=== PATIENT | female | born 1960 | race Caucasian/White ===

== ENCOUNTER 2021-06-08 19:20 | Emergency (ER) | payer BC, OTHER ==
[2021-06-08 19:32] VITALS: RESP 18
[2021-06-08] MEDS ORDERED: ONDANSETRON 4 MG/2 ML VIAL IVP STA (19:47)
[2021-06-08] MEDS ORDERED: FAMOTIDINE 20 MG/2 ML VIAL IV STA (19:47)
[2021-06-08] MEDS ORDERED: SODIUM CHLORIDE 0.9% 1,000 ML IV STA (19:47)
--- NOTE | 2021-06-08 19:49 | ED ---
General Adult HPI - General Chief complaint: Fever Stated complaint: Fever Time Seen by Provider: 06/08/21 19:22 Source: patient, EMS, RN notes reviewed Mode of arrival: EMS Limitations: no limitations - History of Present Illness Initial comments: Patient is a pleasant 61-year-old female presenting to the emergency department with fever. Onset of symptoms was 4 days ago. Patient has been chilled and has myalgias. Patient has had significant fatigue. Patient has an odd smell when she tried to small. Patient has loss of appetite and nausea. No vomiting. Patient has epigastric discomfort similar to her previous reflux. Patient denies having chest discomfort. No dyspnea. No back pain. - Related Data Previous Rx's Medication Instructions Recorded Famotidine [Pepcid] 20 mg PO DAILY #14 tablet 06/16/15 Lidocaine Viscous [Xylocaine 5 ml PO Q3H PRN #100 ml 06/16/15 Viscous 2%] Allergies Allergy/AdvReac Type Severity Reaction Status Date / Time No Known Allergies Allergy Verified 06/16/15 19:38 Review of Systems ROS Statement: Those systems with pertinent positive or pertinent negative responses have been documented in the HPI. ROS Other: All systems not noted in ROS Statement are negative. Constitutional: Reports: fever, chills Eyes: Denies: eye pain ENT: Denies: ear pain Respiratory: Denies: dyspnea Cardiovascular: Denies: chest pain Endocrine: Reports: fatigue Gastrointestinal: Reports: abdominal pain, nausea. Denies: vomiting Genitourinary: Denies: dysuria Musculoskeletal: Denies: back pain Skin: Denies: rash Neurological: Denies: weakness Past Medical History Past Medical History: GERD/Reflux History of Any Multi-Drug Resistant Organisms: None Reported Past Surgical History: No Surgical Hx Reported Past Psychological History: No Psychological Hx Reported Smoking Status: Never smoker Past Alcohol Use History: None Reported Past Drug Use History: None Reported General Exam Limitations: no limitations General appearance: alert, in no apparent distress Head exam: Present: normocephalic Eye exam: Present: normal appearance ENT exam: Present: normal oropharynx Neck exam: Present: normal inspection Respiratory exam: Present: normal lung sounds bilaterally Cardiovascular Exam: Present: regular rate, normal rhythm Expanded Peripheral pulses: 2+: Radial (R), Radial (L), Posterior Tibialis (R), Posterior Tibialis (L) GI/Abdominal exam: Present: soft, tenderness (Mild epigastric tenderness to palpation). Absent: distended Extremities exam: Present: normal inspection. Absent: pedal edema, calf t enderness Neurological exam: Present: alert Psychiatric exam: Present: normal affect, normal mood Skin exam: Present: normal color Course Vital Signs 06/08/21 06/08/21 06/08/21 19:22 20:10 21:35 Temperature 98.7 F Pulse Rate 81 76 82 Respiratory 18 18 18 Rate Blood Pressure 133/81 135/67 124/89 O2 Sat by Pulse 94 L 92 L 93 L Oximetry - Reevaluation(s) Reevaluation #1: 06/08/21 19:59 Patient states drain tube has been draining and was empty just prior to arrival. There is a proximal he 5-10 mL of serosanguineous fluid present. EKG Findings - EKG Comments: EKG Findings:: Normal sinus rhythm with rate of 78. ND 132. QRS 88. QT 380. QTC 433. Normal axis. Normal QRS. No acute ST change. Medical Decision Making - Medical Decision Making Patient reevaluated and resting comfortably in bed. Patient and family updated on results - Lab Data Result diagrams: 06/08/21 19:48 06/08/21 19:48 Lab Results 06/08/21 06/08/21 06/08/21 Range/Units 19:48 19:48 19:48 WBC 4.3 (3.8-10.6) k/uL RBC 4.43 (3.80-5.40) m/uL Hgb 13.3 (11.4-16.0) gm/dL Hct 40.3 (34.0-46.0) % MCV 90.8 (80.0-100.0) fL MCH 29.9 (25.0-35.0) pg MCHC 32.9 (31.0-37.0) g/dL RDW 12.8 (11.5-15.5) % Plt Count 133 L (150-450) k/uL MPV 10.4 Neutrophils % 76 % Lymphocytes % 14 % Monocytes % 7 % Eosinophils % 0 % Basophils % 0 % Neutrophils # 3.3 (1.3-7.7) k/uL Lymphocytes # 0.6 L (1.0-4.8) k/uL Monocytes # 0.3 (0-1.0) k/uL Eosinophils # 0.0 (0-0.7) k/uL Basophils # 0.0 (0-0.2) k/uL PT 10.5 (9.0-12.0) sec INR 1.0 (<1.2) APTT 22.5 (22.0-30.0) sec Sodium (137-145) mmol/L Potassium (3.5-5.1) mmol/L Chloride (98-107) mmol/L Carbon Dioxide (22-30) mmol/L Anion Gap mmol/L BUN (7-17) mg/dL Creatinine (0.52-1.04) mg/dL Est GFR (CKD-EPI)AfAm (>60 ml/min/1.73 sqM) Est GFR (CKD-EPI)NonAf (>60 ml/min/1.73 sqM) Glucose (74-99) mg/dL Calcium (8.4-10.2) mg/dL Total Bilirubin (0.2-1.3) mg/dL AST (14-36) U/L ALT (4-34) U/L Alkaline Phosphatase (38-126) U/L Troponin I (0.000-0.034) ng/mL Total Protein (6.3-8.2) g/dL Albumin (3.5-5.0) g/dL Amylase (30-110) U/L Lipase (23-300) U/L Coronavirus (PCR) Detected A (Not Detectd) 06/08/21 06/08/21 Range/Units 19:48 19:48 WBC (3.8-10.6) k/uL RBC (3.80-5.40) m/uL Hgb (11.4-16.0) gm/dL Hct (34.0-46.0) % MCV (80.0-100.0) fL MCH (25.0-35.0) pg MCHC (31.0-37.0) g/dL RDW (11.5-15.5) % Plt Count (150-450) k/uL MPV Neutrophils % % Lymphocytes % % Monocytes % % Eosinophils % % Basophils % % Neutrophils # (1.3-7.7) k/uL Lymphocytes # (1.0-4.8) k/uL Monocytes # (0-1.0) k/uL Eosinophils # (0-0.7) k/uL Basophils # (0-0.2) k/uL PT (9.0-12.0) sec INR (<1.2) APTT (22.0-30.0) sec Sodium 138 (137-145) mmol/L Potassium 3.9 (3.5-5.1) mmol/L Chloride 110 H (98-107) mmol/L Carbon Dioxide 18 L (22-30) mmol/L Anion Gap 10 mmol/L BUN 18 H (7-17) mg/dL Creatinine 0.73 (0.52-1.04) mg/dL Est GFR (CKD-EPI)AfAm >90 (>60 ml/min/1.73 sqM) Est GFR (CKD-EPI)NonAf 88 (>60 ml/min/1.73 sqM) Glucose 111 H (74-99) mg/dL Calcium 7.9 L (8.4-10.2) mg/dL Total Bilirubin 0.6 (0.2-1.3) mg/dL AST 30 (14-36) U/L ALT 34 (4-34) U/L Alkaline Phosphatase 59 (38-126) U/L Troponin I <0.012 (0.000-0.034) ng/mL Total Protein 6.5 (6.3-8.2) g/dL Albumin 3.3 L (3.5-5.0) g/dL Amylase 59 (30-110) U/L Lipase 247 (23-300) U/L Coronavirus (PCR) (Not Detectd) - Radiology Data Radiology results: report reviewed (Computed tomography scan of abdomen and pelvis shows some mild subpleural interstitial infiltrates, negative computed t omography scan of abdomen and pelvis.), image reviewed (Chest x-ray shows mild peripheral pulmonary interstitial infiltrates.) Disposition Clinical Impression: COVID-19 Disposition: ADMITTED IP TO THIS [facility] Condition: Stable Instructions (If sedation given, give patient instructions): Coronavirus Disease 2019 (COVID-19) Additional Instructions: Please do follow-up with primary care physician in the next day or 2 for recheck. [id number] Pepcid if needed for reflux. [id number] vitamin C, vitamin D, and zinc. Tylenol as needed for fever or chills or muscle aches. Is patient prescribed a controlled substance at d/c from ED?: No Referrals: Rahul Narayanan MD [Primary Care Provider] - 1-2 days Time of Disposition: 21:38
[2021-06-08 20:08] LABS: Basophils % (A) 0 %; Eosinophils % (A) 0 %; HCT 40.3 % (34.0-46.0); HGB 13.3 gm/dL (11.4-16.0); Lymphocytes # (A) 0.6 k/uL (1.0-4.8); Lymphocytes % (A) 14 %; MCH 29.9 pg (25.0-35.0); MCHC 32.9 g/dL (31.0-37.0); MCV 90.8 fL (80.0-100.0); Mean Platelet Volume 10.4; Monocytes # (A) 0.3 k/uL (0-1.0); Monocytes % (A) 7 %; Neutrophils # (A) 3.3 k/uL (1.3-7.7); Neutrophils % (A) 76 %; Platelet Count 133 k/uL (150-450); RBC 4.43 m/uL (3.80-5.40); RDW 12.8 % (11.5-15.5); WBC 4.3 k/uL (3.8-10.6)
--- NOTE | 2021-06-08 20:08 | XR ---
EXAMINATION TYPE: XR chest 2V DATE OF EXAM: 06/08/2021 COMPARISON: 06/16/2015 HISTORY: Weakness TECHNIQUE: 2 views FINDINGS: Heart is normal. Lungs are clear of consolidation. There are no hilar masses. Costophrenic angles are clear. There is some mild peripheral interstitial density in the lateral right lower lobe and lateral left upper lobe. Bony thorax is intact. IMPRESSION: Mild peripheral pulmonary interstitial infiltrates appear new compared to old exam. Milena l heart.
[2021-06-08 20:18] LABS: ALT 34 U/L (4-34); AST 30 U/L (14-36); African American GFR (CKD) >90 (>60 ml/min/1.73 sqM); Albumin 3.3 g/dL (3.5-5.0); Alkaline Phosphatase 59 U/L (38-126); Amylase 59 U/L (30-110); Anion Gap 10 mmol/L; Blood Urea Nitrogen 18 mg/dL (7-17); Calcium 7.9 mg/dL (8.4-10.2); Carbon Dioxide 18 mmol/L (22-30); Chloride 110 mmol/L (98-107); Glucose 111 mg/dL (74-99); Lipase 247 U/L (23-300); Non-African American GFR(CKD) 88 (>60 ml/min/1.73 sqM); Potassium 3.9 mmol/L (3.5-5.1); Sodium 138 mmol/L (137-145); Total Bilirubin 0.6 mg/dL (0.2-1.3); Total Protein 6.5 g/dL (6.3-8.2)
[2021-06-08 20:37] LABS: Partial Thromboplastin Time 22.5 sec (22.0-30.0); Prothrombin Time 10.5 sec (9.0-12.0)
--- NOTE | 2021-06-08 21:19 | CT ---
EXAMINATION TYPE: CT abdomen pelvis w con DATE OF EXAM: 06/08/2021 COMPARISON: None HISTORY: epigastric pain CT DLP: 718.5 mGycm Automated exposure control for dose reduction was used. CONTRAST: Performed with IV Contrast, patient injected with 100 mL of Isovue 300. Images obtained from the diaphragm to the floor of the pelvis with IV contrast. There is some mild patchy subpleural infiltrate in the posterior lung jackson. Heart size is normal. There is no pericardial effusion. There is no pleural effusion. The liver is in tact. The bile duct is not dilated. Gallbladder appears normal. Spleen is intact. There are multiple splenic calcified granulomata. There is no evidence of pancreatic mass. There is no adrenal mass. Kidneys show satisfactory contrast opacification. There is no hydronephrosi s. Ureters are not dilated. There is no retroperitoneal adenopathy. Bladder distends smoothly. There is no inguinal hernia. There is no free fluid in the pelvis. Uterus is anteverted. There is no mesenteric edema. There is no ascites or free air. There is no bowel obstruction. Appendi x not clearly seen. No sign of thickened appendix. The lumbar vertebra have normal alignment. Posterior elements are intact. There is no compression fra cture. The bony pelvis is intact. The hip joints are intact. Sacroiliac joints are intact. IMPRESSION: Negative CT scan of the abdomen and pelvis. There is some mild subpleural interstitial infiltrative a telectasis in the posterior lung jackson.
[2021-06-08 21:37] VITALS: BP 124/89
[2021-06-08 21:59] VITALS: PULSE 78; TEMP 98.3
== END 2021-06-08 22:10 | disposition other institution (70) ==
LOC: EC 19:20
DX: U07.1 COVID-19 (principal); K21.9 Gastro-esophageal reflux disease without esophagitis; Z79.899 Other long term (current) drug therapy
CPT/HCPCS: 36415; 93005; 80053; 82150; 83690; 84484; 85025; 85610; 85730; 87635; 71046; 74177; 99285; 96374; 96375; J2405; Q9967

== ENCOUNTER 2021-06-18 00:39 | Inpatient (IN) | payer BC, OTHER ==
[2021-06-18] MEDS ORDERED: ONDANSETRON 4 MG/2 ML VIAL IVP STA (00:51)
[2021-06-18] MEDS ORDERED: MORPHINE SULFATE 4 MG/ML SYRINGE IVP STA (00:51)
--- NOTE | 2021-06-18 00:57 | ED ---
General Adult HPI - General Stated complaint: Shortness of Breath, Chest Pain Time Seen by Provider: 06/18/21 00:41 - History of Present Illness Initial comments: 61 year-old female patient presents for evaluation of left upper chest pain with radiation into her ribs and left posterior shoulder. States pain started on Friday and has been worsening. States she is unable to lie down or take deep breaths. States she was diagnosed with COVID 10 days ago. States she was seen at [place] [facility] on Friday and urgent care today. States she is not feeling any b lauren. She denies cough. Denies nausea or vomiting. Denies any fever or chills. Patient denies any recent rash, abdominal pain, diarrhea, constipation, back pain, numbness, tingling, dizziness, weakness, hematuria, dysuria, urinary urgency, urinary frequency, headache, visual changes, or any other complaints. - Related Data Previous Rx's Medication Instructions Recorded Famotidine [Pepcid] 20 mg PO DAILY #14 tablet 06/16/15 Lidocaine Viscous [Xylocaine 5 ml PO Q3H PRN #100 ml 06/16/15 Viscous 2%] Allergies Allergy/AdvReac Type Severity Reaction Status Date / Time No Known Allergies Allergy Verified 06/16/15 19:38 Review of Systems ROS Statement: Those systems with pertinent positive or pertinent negative responses have been documented in the HPI. ROS Other: All systems not noted in ROS Statement are negative. Past Medical History Past Medical History: GERD/Reflux History of Any Multi-Drug Resistant Organisms: None Reported Past Surgical History: No Surgical Hx Reported Past Psychological History: No Psychological Hx Reported Smoking Status: Never smoker Past Alcohol Use History: None Reported Past Drug Use History: None Reported General Exam General appearance: alert, in no apparent distress, other (This is a well- developed, well-nourished adult female in mild distress related to pain.) ENT exam: Present: normal exam, normal oropharynx, mucous membranes moist Respiratory exam: Present: normal lung sounds bilaterally. Absent: respiratory distress, wheezes, rales, rhonchi, stridor Cardiovascular Exam: Present: regular rate, normal rhythm, normal heart sounds. Absent: systolic murmur, diastolic murmur, rubs, gallop, clicks GI/Abdominal exam: Present: soft, normal bowel sounds. Absent: distended, tenderness, guarding, rebound, rigid Neurological exam: Present: alert, oriented X3, CN II-XII intact Psychiatric exam: Present: normal affect, normal mood Skin exam: Present: warm, dry, intact, normal color. Absent: rash Course Vital Signs 06/18/21 00:50 Temperature 99.1 F Pulse Rate 105 H Respiratory 19 Rate Blood Pressure 110/95 O2 Sat by Pulse 94 L Oximetry Medical Decision Making - Medical Decision Making 61-year-old female patient presented to the emergency department today for evaluation of increased shortness of breath, left-sided chest pain with radiation to the left posterior shoulder. Oxygen saturation on room air was 91- 93%. Lungs are clear to auscultation. Labs reviewed and did reveal white blood cell count of 14.5. D-dimer 4.89. Troponin negative. EKG did show sinus tachycardia. CT chest angiography for pulmonary embolus was obtained and did show multiple bilateral pulmonary emboli. We will start heparin. Consults to pulmonology and vascular. My attending is Dr. Michelle. - Lab Data Result diagrams: 06/18/21 01:43 06/18/21 01:43 Lab Results 06/18/21 06/18/21 06/18/21 Range/Units 01:43 01:43 01:43 WBC 14.5 H (3.8-10.6) k/uL RBC 4.63 (3.80-5.40) m/uL Hgb 13.7 (11.4-16.0) gm/dL Hct 41.3 (34.0-46.0) % MCV 89.3 (80.0-100.0) fL MCH 29.6 (25.0-35.0) pg MCHC 33.1 (31.0-37.0) g/dL RDW 12.3 (11.5-15.5) % Plt Count 414 D (150-450) k/uL MPV 7.8 Neutrophils % 86 % Lymphocytes % 6 % Monocytes % 6 % Eosinophils % 1 % Basophils % 0 % Neutrophils # 12.5 H (1.3-7.7) k/uL Lymphocytes # 0.8 L (1.0-4.8) k/uL Monocytes # 0.8 (0-1.0) k/uL Eosinophils # 0.1 (0-0.7) k/uL Basophils # 0.0 (0-0.2) k/uL PT 11.6 (9.0-12.0) sec INR 1.1 (<1.2) APTT 28.9 (22.0-30.0) sec D-Dimer 4.89 H (<0.60) mg/L FEU Sodium 137 (137-145) mmol/L Potassium 4.4 (3.5-5.1) mmol/L Chloride 106 (98-107) mmol/L Carbon Dioxide 21 L (22-30) mmol/L Anion Gap 10 mmol/L BUN 13 (7-17) mg/dL Creatinine 0.65 (0.52-1.04) mg/dL Est GFR (CKD-EPI)AfAm >90 (>60 ml/min/1.73 sqM) Est GFR (CKD-EPI)NonAf >90 (>60 ml/min/1.73 sqM) Glucose 120 H (74-99) mg/dL Calcium 9.0 (8.4-10.2) mg/dL Magnesium 2.3 (1.6-2.3) mg/dL Total Bilirubin 0.9 (0.2-1.3) mg/dL AST 31 (14-36) U/L ALT 28 (4-34) U/L Alkaline Phosphatase 100 (38-126) U/L Troponin I (0.000-0.034) ng/mL Total Protein 7.9 (6.3-8.2) g/dL Albumin 3.6 (3.5-5.0) g/dL 06/18/21 Range/Units 01:43 WBC (3.8-10.6) k/uL RBC (3.80-5.40) m/uL Hgb (11.4-16.0) gm/dL Hct (34.0-46.0) % MCV (80.0-100.0) fL MCH (25.0-35.0) pg MCHC (31.0-37.0) g/dL RDW (11.5-15.5) % Plt Count (150-450) k/uL MPV Neutrophils % % Lymphocytes % % Monocytes % % Eosinophils % % Basophils % % Neutrophils # (1.3-7.7) k/uL Lymphocytes # (1.0-4.8) k/uL Monocytes # (0-1.0) k/uL Eosinophils # (0-0.7) k/uL Basophils # (0-0.2) k/uL PT (9.0-12.0) sec INR (<1.2) APTT (22.0-30.0) sec D-Dimer (<0.60) mg/L FEU Sodium (137-145) mmol/L Potassium (3.5-5.1) mmol/L Chloride (98-107) mmol/L Carbon Dioxide (22-30) mmol/L Anion Gap mmol/L BUN (7-17) mg/dL Creatinine (0.52-1.04) mg/dL Est GFR (CKD-EPI)AfAm (>60 ml/min/1.73 sqM) Est GFR (CKD-EPI)NonAf (>60 ml/min/1.73 sqM) Glucose (74-99) mg/dL Calcium (8.4-10.2) mg/dL Magnesium (1.6-2.3) mg/dL Total Bilirubin (0.2-1.3) mg/dL AST (14-36) U/L ALT (4-34) U/L Alkaline Phosphatase (38-126) U/L Troponin I <0.012 (0.000-0.034) ng/mL Total Protein (6.3-8.2) g/dL Albumin (3.5-5.0) g/dL - Radiology Data Radiology results: report reviewed, image reviewed CT chest angiography for PE was obtained. Report was reviewed in its entirety. Impression by Dr. Mooney shows multiple bilateral lobe pulmonary emboli. Disposition Clinical Impression: Bilateral pulmonary embolism Disposition: ADMITTED IP TO THIS [facility] Condition: Serious Referrals: Rahul Narayanan MD [Primary Care Provider] - 1-2 days Decision to Admit Reason: Admit from EC Decision Date: 06/18/21 Decision Time: 03:52
--- NOTE | 2021-06-18 01:23 | XR ---
EXAMINATION TYPE: XR chest 2V DATE OF EXAM: 06/18/2021 COMPARISON: NONE HISTORY: Fever TECHNIQUE: 2 views FINDINGS: Heart is normal. There is patchy airspace infiltrate and atelectasis in the mid and lower l hunter jackson. There is no heart failure. There are no hilar masses. There are chest leads. Bony thorax is intact. IMPRESSION: Bilateral multifocal pneumonia and atelectasis which is increased compared to last exam.
[2021-06-18] MEDS ORDERED: ACETAMINOPHEN TAB 500 MG TAB PO STA (01:52)
[2021-06-18 01:53] LABS: Basophils % (A) 0 %; Eosinophils # (A) 0.1 k/uL (0-0.7); Eosinophils % (A) 1 %; HCT 41.3 % (34.0-46.0); HGB 13.7 gm/dL (11.4-16.0); Lymphocytes # (A) 0.8 k/uL (1.0-4.8); Lymphocytes % (A) 6 %; MCH 29.6 pg (25.0-35.0); MCHC 33.1 g/dL (31.0-37.0); MCV 89.3 fL (80.0-100.0); Mean Platelet Volume 7.8; Monocytes # (A) 0.8 k/uL (0-1.0); Monocytes % (A) 6 %; Neutrophils # (A) 12.5 k/uL (1.3-7.7); Neutrophils % (A) 86 %; RBC 4.63 m/uL (3.80-5.40); RDW 12.3 % (11.5-15.5); WBC 14.5 k/uL (3.8-10.6)
[2021-06-18 02:05] LABS: ALT 28 U/L (4-34); AST 31 U/L (14-36); African American GFR (CKD) >90 (>60 ml/min/1.73 sqM); Albumin 3.6 g/dL (3.5-5.0); Alkaline Phosphatase 100 U/L (38-126); Anion Gap 10 mmol/L; Blood Urea Nitrogen 13 mg/dL (7-17); Carbon Dioxide 21 mmol/L (22-30); Chloride 106 mmol/L (98-107); Glucose 120 mg/dL (74-99); Magnesium 2.3 mg/dL (1.6-2.3); Non-African American GFR(CKD) >90 (>60 ml/min/1.73 sqM); Potassium 4.4 mmol/L (3.5-5.1); Sodium 137 mmol/L (137-145); Total Bilirubin 0.9 mg/dL (0.2-1.3); Total Protein 7.9 g/dL (6.3-8.2)
[2021-06-18 02:08] LABS: Platelet Count 414 k/uL (150-450)
[2021-06-18 02:19] LABS: INR 1.1 (<1.2); Partial Thromboplastin Time 28.9 sec (22.0-30.0); Prothrombin Time 11.6 sec (9.0-12.0)
[2021-06-18] MEDS ORDERED: DIAZEPAM 5 MG/ML 2 ML INJ IVP STA (02:37)
[2021-06-18] MEDS ORDERED: HEPARIN SODIUM 1,000 UN/ML (10ML VL) IV ONE (03:31)
[2021-06-18] MEDS ORDERED: HEPARIN SODIUM 1,000 UN/ML (10ML VL) IV PRN (03:31)
--- NOTE | 2021-06-18 03:33 | CT ---
EXAMINATION TYPE: CT chest angio for PE DATE OF EXAM: 06/18/2021 COMPARISON: None HISTORY: elevated d-dimer. chest pain. rule out PE CT DLP: 229.4 mGycm Automated exposure control for dose reduction was used. CONTRAST: Performed with IV Contrast, patient injected with 65ml mL of Isovue 370. Images obtained from the thoracic inlet to the diaphragm with IV contrast. There are Three-D postproc essed images. There is patchy peripheral pulmonary interstitial and airspace infiltrates in both lungs. There is so me coalescent density left lower lobe. Heart size is normal. There is no pericardial effusion. There is small left pleural effusion. Thoracic aorta is intact. There is no aneurysm or dissection. There is no mediastinal adenopathy. The re are no hilar masses. There are multiple filling defects in the left lower lobe pulmonary artery. There are also several fi lling defects in the branches of the right lower lobe pulmonary artery. The thoracic spine is intact. Disc spaces are normal. Sternum is intact. There is no compression frac ture. The upper abdominal soft tissues appear intact. IMPRESSION: Multiple bilateral lobe pulmonary emboli. Patchy bilateral pulmonary interstitial and airspace infiltrates consistent with multifocal pneumonia . Left lower lobe infiltrate and atelectasis. Normal heart size. Exam was discussed with emergency room attending staff at 3:30 AM.
[2021-06-18] MEDS ORDERED: ONDANSETRON 4 MG/2 ML VIAL IVP PRN (03:52)
[2021-06-18] MEDS ORDERED: NALOXONE 0.4 MG/ML 1 ML VIAL IV PRN (03:52)
[2021-06-18] MEDS: SODIUM CHLORIDE 0.9% 1,000 ML IV SCH (04:22)
[2021-06-18] MEDS: HEPARIN SOD,PORK IN 0.45% NACL 25,000 UNIT in 0.45% NACL 1 250ML.BAG IV SCH (04:29)
[2021-06-18] MEDS: MORPHINE SULFATE 4 MG/ML SYRINGE IV PRN ×2 (08:08→12:48)
--- NOTE | 2021-06-18 09:57 | US ---
EXAMINATION TYPE: US venous doppler duplex LE BI DATE OF EXAM: 06/18/2021 8:21 AM COMPARISON: NONE CLINICAL HISTORY: 61-year-old female bilateral PE. SIDE PERFORMED: Bilateral TECHNIQUE: The lower extremity deep venous system is examined utilizing real time linear array sonog daisy with graded compression, doppler sonography and color-flow sonography. FINDINGS: VESSELS IMAGED: Common Femoral Vein Deep Femoral Vein Greater Saphenous Vein * Femoral Vein Popliteal Vein Small Saphenous Vein * Proximal Calf Veins (* superficial vessels) Right Leg: Appears negative for DVT Left Leg: Appears negative for DVT IMPRESSION: No evidence for DVT within the bilateral lower extremities imaged from the groin to the upper calf.
--- NOTE | 2021-06-18 11:36 | P.GSCN ---
History of Present Illness Consult date: 06/18/21 Reason for Consult: Bilateral pulmonary emboli Requesting physician: Capri Gilbert History of present illness: This is 61-year-old female who presented to the emergency room in the middle of the night with complaints of left chest pain that radiates around her back and in her shoulder. Patient also was stating that there is pain with movement in her left rib cage as well as when taking deep breaths. She states she was recently diagnosed with Covid 19 and was in the ER emergency room approximately 2 weeks ago and sent home. Laboratory work showed elevation in her D dimer. They did a CT angiogram of the chest that showed old bilateral lobe pulmonary emboli with patchy bilateral pulmonary interstitial and airspace infiltrates consistent with multifocal pneumonia. Left lower lobe infiltrate and atelec tasis. states she continues to have pain mostly in the rib cage and when taking a deep breath. She denies any actual chest pain, fever, nausea, vomiting, or diarrhea. Admitting lab work WBC 14.5 hemoglobin 13.7 d-dimer 4.89, troponin less than 0.012 Review of Systems A 14 point review of systems was completed and all pertinent positives and negatives as stated in the HPI Past Medical History Past Medical History: GERD/Reflux Additional Past Medical History / Comment(s): Pt covid + 06/08/21 [facility] ER, recently belching alot. History of Any Multi-Drug Resistant Organisms: None Reported Past Surgical History: Tonsillectomy Past Anesthesia/Blood Transfusion Reactions: No Reported Reaction Smoking Status: Former smoker - Past Family History Father Family Medical History: Cancer Additional Family Medical History / Comment(s): Father of lung cancer at the age of 67yrs. He was a smoker. Mother Family Medical History: No Reported History Additional Family Medical History / Comment(s): Mother is healthy and is 84 yrs old. Medications and Allergies Home Medications Medication Instructions Recorded Confirmed Type Ascorbic Acid [Vitamin C] 500 mg PO DAILY 06/18/21 06/18/21 History Azithromycin [Zithromax Z-pack (6 See Taper PO DIRECTED 06/18/21 06/18/21 History tabs)] Cholecalciferol (Vitamin D3) 75 mcg PO DAILY 06/18/21 06/18/21 History [Vitamin D3 (3000 Iu)] Elderberry Fruit and Flower [Black 1 cap PO DAILY 06/18/21 06/18/21 History Elderberry 575 mg Cap] Zinc Gluconate [Zinc] 50 mg PO DAILY 06/18/21 06/18/21 History Allergies Allergy/AdvReac Type Severity Reaction Status Date / Time codeine AdvReac Nausea & Verified 06/18/21 07:07 Vomiting Surgical - Exam Vital Signs Temp Pulse Resp BP Pulse Ox 99.1 F 105 H 19 110/95 94 L 06/18/21 00:50 06/18/21 00:50 06/18/21 00:50 06/18/21 00:50 06/18/21 00:50 General appearance: The patient is alert, oriented, appears in no acute distress. HET: Head is normocephalic and atraumatic. Pupils are equal and reactive. Neck: Supple without lymphadenopathy. Trachea midline. No audible carotid bruit. Heart: S1 S2. Regular rate and rhythm. Lungs: Clear to auscultation bilaterally. Chest wall: Tender to palpation along the left chest wall and ribs, tenderness around her left flank with palpation. Abdomen: Soft, nontender, nondistended. Extremities: Normal skin color and turgor. No cyanosis, rash, ulceration, clubbing, or edema. Radial and pedal pulses are 2/4 bilaterally. Neurological: No focal deficits. Strength and sensation are grossly intact. Results - Labs 06/18/21 01:43 06/18/21 01:43 Abnormal Lab Results - Last 24 Hours (Table) 06/18/21 06/18/21 06/18/21 Range/Units 01:43 01:43 01:43 WBC 14.5 H (3.8-10.6) k/uL Neutrophils # 12.5 H (1.3-7.7) k/uL Lymphocytes # 0.8 L (1.0-4.8) k/uL D-Dimer 4.89 H (<0.60) mg/L FEU Carbon Dioxide 21 L (22-30) mmol/L Glucose 120 H (74-99) mg/dL Procalcitonin (0.02-0.09) ng/mL Coronavirus (PCR) (Not Detectd) 06/18/21 06/18/21 Range/Units 04:15 04:42 WBC (3.8-10.6) k/uL Neutrophils # (1.3-7.7) k/uL Lymphocytes # (1.0-4.8) k/uL D-Dimer (<0.60) mg/L FEU Carbon Dioxide (22-30) mmol/L Glucose (74-99) mg/dL Procalcitonin 0.15 H (0.02-0.09) ng/mL Coronavirus (PCR) Detected A (Not Detectd) Diabetes panel 06/18/21 Range/Units 01:43 Sodium 137 (137-145) mmol/L Potassium 4.4 (3.5-5.1) mmol/L Chloride 106 (98-107) mmol/L Carbon Dioxide 21 L (22-30) mmol/L BUN 13 (7-17) mg/dL Creatinine 0.65 (0.52-1.04) mg/dL Glucose 120 H (74-99) mg/dL Calcium 9.0 (8.4-10.2) mg/dL AST 31 (14-36) U/L ALT 28 (4-34) U/L Alkaline Phosphatase 100 (38-126) U/L Total Protein 7.9 (6.3-8.2) g/dL Albumin 3.6 (3.5-5.0) g/dL Calcium panel 06/18/21 Range/Units 01:43 Calcium 9.0 (8.4-10.2) mg/dL Albumin 3.6 (3.5-5.0) g/dL Pituitary panel 06/18/21 Range/Units 01:43 Sodium 137 (137-145) mmol/L Potassium 4.4 (3.5-5.1) mmol/L Chloride 106 (98-107) mmol/L Carbon Dioxide 21 L (22-30) mmol/L BUN 13 (7-17) mg/dL Creatinine 0.65 (0.52-1.04) mg/dL Glucose 120 H (74-99) mg/dL Calcium 9.0 (8.4-10.2) mg/dL Adrenal panel 06/18/21 Range/Units 01:43 Sodium 137 (137-145) mmol/L Potassium 4.4 (3.5-5.1) mmol/L Chloride 106 (98-107) mmol/L Carbon Dioxide 21 L (22-30) mmol/L BUN 13 (7-17) mg/dL Creatinine 0.65 (0.52-1.04) mg/dL Glucose 120 H (74-99) mg/dL Calcium 9.0 (8.4-10.2) mg/dL Total Bilirubin 0.9 (0.2-1.3) mg/dL AST 31 (14-36) U/L ALT 28 (4-34) U/L Alkaline Phosphatase 100 (38-126) U/L Total Protein 7.9 (6.3-8.2) g/dL Albumin 3.6 (3.5-5.0) g/dL - Imaging Comments: As stated in HPI Venous duplex: Impression states appears negative for DVT in bilateral lower extremities Chest x-ray: report reviewed CT scan - chest: report reviewed Assessment and Plan Assessment: 1. Multiple bilateral pulmonary emboli 2. COVID-19 positive 3. Musculoskeletal pain Plan: 1. Continue IV heparin drip 2. Echocardiogram ordered 3. Lower extremity venous Doppler duplex ordered 4. Further recommendations forthcoming based on echocardiogram, however there appears to be no evidence at this point of right heart strain Thank you for this consultation and allowing us take part in the plan of care your patient during her hospital stay. The impression and plan of care has been dictated as directed. Dr. Mcnair I performed a history and examination of this patient, discussed the same with the dictator. I agree with the dictator's note ,documented as a scribe. Any additional findings or plans will be noted.
--- NOTE | 2021-06-18 11:37 | ECHOF ---
Referral Reason:bilateral PE, evaluate for right heart strain MEASUREMENTS -------- HEIGHT: 162.6 cm WEIGHT: 65.8 kg BP: FINDINGS -------- Sinus rhythm. Limited Echo due to Covid 19 exposure. Overall left ventricular systolic function is normal with, an EF between 55 - 60 %. CONCLUSIONS -------- 1. Sinus rhythm. 2. Limited Echo due to Covid 19 exposure. 3. Overall left ventricular systolic function is normal with, an EF between 55 - 60 %. GIFT CONSULTANT: Citlaly Randhawa RDCS
[2021-06-18] MEDS: DEXAMETHASONE SOD PHOSPHATE 10 MG/ML 1 ML VIAL IVP SCH (12:48)
[2021-06-18 12:50] VITALS: BMI 24.9
[2021-06-18] MEDS ORDERED: HYDROmorphone 1 MG/ML 1 ML SYRINGE IVP PRN (13:07)
[2021-06-18] MEDS ORDERED: KETOROLAC 15 MG/ML 1 ML VIAL IVP STA (13:07)
--- NOTE | 2021-06-18 13:32 | P.HPIM ---
History of Present Illness H&P Date: 06/18/21 HISTORY OF PRESENT ILLNESS This is a 61-year-old female patient of Dr. Rahul Narayanan with past medical history of gastroesophageal reflux disease shortness of breath weakness. Patient was seen in the emergency center on June 08 was diagnosed with Covid 19, discharged with vitamins and follow-up with her PCP. CAT scan of the abdomen and pelvis at that time showed mild subpleural interstitial infiltrates. Negative CAT scan of the abdomen and pelvis. Chest x-ray showed mild peripheral pulmonary interstitial infiltrates. Patient then returned on 06/18 with complaints of left-sided chest pain into the left shoulder with tenderness and more pain with deep inspiration. She is complaining of shortness of breath. Patient was found to be afebrile, heart rate 90, blood pressure 117/74, pulse ox 99% on 2 L. D-dimer was 4.89. WBC 14.5, hemoglobin 13.7, platelet count 414. CO2 21, creatinine 0.65. Pro-calcitonin 0.15. Patient is seen today in the emergency center waiting for bed on the cardiac stepdown unit, consult in place with pulmonary medicine and vascular surgery. REVIEW OF SYSTEMS Constitutional: No fever, no chills, no night sweats. No weight change. Reports weakness, Reports fatigue Reports lethargy. No daytime sleepiness. EENT: No headache. No blurred vision or double vision, no loss of vision. No loss of Hearing, no ringing in the ears, no dizziness. No nasal drainage or congestion. No epistaxis. No sore throat. Lungs: Reports shortness of breath, cough, no sputum production. No wheezing. Cardiovascular: Reports chest pain, no lower extremity edema. No palpitations. No paroxysmal nocturnal dyspnea. No orthopnea. No lightheadedness or dizziness. No syncopal episodes. Abdominal: No abdominal pain. No nausea, vomiting. No diarrhea. No constipation. No bloody or tarry stools. No loss of appetite. Genitourinary: No dysuria, increased frequency, urgency. No urinary retention. Musculoskeletal: No myalgias. No muscle weakness, no gait dysfunction, no frequent falls. No back pain. No neck pain. Integumentary: No wounds, no lesions. No rash or pruritus. No unusual bruising. No change in hair or nails. Neurologic: No aphasia. No facial droop. No change in mentation. No head injury. No headache. No paralysis. No paresthesia. Psychiatric: No depression. No anxiety. No mood swings. Endocrine: No abnormal blood sugars. No weight change. No excessive sweating or thirst. No cold intolerance. SOCIAL HISTORY Patient was a smoker one pack per day and quit 20 years ago. She denies any alcohol use. She is a . No oxygen at home. FAMILY HISTORY father from lung cancer at age of 67 with history of smoking. Mother is alive at age 84. She has 2 sisters and one daughter. PHYSICAL EXAMINATION Gen: This is a 61-year-old female. She is resting on the ER stretcher. Patient appears to be fatigued. HEENT: Head is atraumatic, normocephalic. Pupils equal, round. Sclerae is anict satish. NECK: Supple. No JVD. No lymphadenopathy. No thyromegaly. LUNGS: Bilateral rhonchi. No intercostal retractions. HEART: Regular rate and rhythm. No murmur. ABDOMEN: Soft. Bowel sounds are present. No masses. No tenderness. EXTREMITIES: No pedal edema. No calf tenderness. dorsalis pedis +2 bilaterally. NEUROLOGICAL: Patient is awake, alert and oriented x3. Cranial nerves 2 through 12 are grossly intact. ASSESSMENT AND PLAN 1. Acute Covid 19 pneumonia. Patient started on azithromycin, ceftriaxone, vitamin supplements, dexamethasone 6 mg IV daily, consult with pulmonary medicine. 2. Acute bilateral pulmonary embolism. Patient's been started on heparin drip, echocardiogram to assess for right heart strain, vascular surgery consult appreciated. 3. Acute chest pain with chest wall tenderness. One dose of Toradol, IV morphine changed to Dilaudid. 4. Gastroesophageal reflux disease. Patient started on Protonix 40 mg daily. 5. Remote history of tobacco use. 6. DVT prophylaxis. Heparin drip. Patient will be admitted to the hospital for a minimum of 2 night stay. DISCHARGE PLAN Home. Impression and plan of care have been directed as dictated by the signing physician. Marnie Horvath nurse practitioner acting as scribe for signing physician. Past Medical History Past Medical History: GERD/Reflux Additional Past Medical History / Comment(s): Pt covid + 06/08/21 [facility] ER, recently belching alot. History of Any Multi-Drug Resistant Organisms: None Reported Past Surgical History: Tonsillectomy Past Anesthesia/Blood Transfusion Reactions: No Reported Reaction Smoking Status: Former smoker - Past Family History Father Family Medical History: Cancer Additional Family Medical History / Comment(s): Father of lung cancer at the age of 67yrs. He was a smoker. Mother Family Medical History: No Reported History Additional Family Medical History / Comment(s): Mother is healthy and is 84 yrs old. Medications and Allergies Home Medications Medication Instructions Recorded Confirmed Type Ascorbic Acid [Vitamin C] 500 mg PO DAILY 06/18/21 06/18/21 History Azithromycin [Zithromax Z-pack (6 See Taper PO DIRECTED 06/18/21 06/18/21 History tabs)] Cholecalciferol (Vitamin D3) 75 mcg PO DAILY 06/18/21 06/18/21 History [Vitamin D3 (3000 Iu)] Elderberry Fruit and Flower [Black 1 cap PO DAILY 06/18/21 06/18/21 History Elderberry 575 mg Cap] Zinc Gluconate [Zinc] 50 mg PO DAILY 06/18/21 06/18/21 History Allergies Allergy/AdvReac Type Severity Reaction Status Date / Time codeine AdvReac Nausea & Verified 06/18/21 07:07 Vomiting Physical Exam Vitals: Vital Signs Temp Pulse Resp BP Pulse Ox 06/18/21 09:59 92 18 97 06/18/21 08:06 98.2 F 97 18 112/70 98 06/18/21 07:48 98 18 98 06/18/21 07:00 83 16 118/75 96 06/18/21 05:00 97.5 F L 90 18 117/74 99 06/18/21 00:50 99.1 F 105 H 19 110/95 94 L Intake and Output 06/17/21 06/18/21 06/18/21 22:59 06:59 14:59 Other: Weight 65.771 kg 65.771 kg Results CBC & Chem 7: 06/18/21 01:43 06/18/21 01:43 Labs: Abnormal Lab Results - Last 24 Hours (Table) 06/18/21 06/18/21 06/18/21 Range/Units 01:43 01:43 01:43 WBC 14.5 H (3.8-10.6) k/uL Neutrophils # 12.5 H (1.3-7.7) k/uL Lymphocytes # 0.8 L (1.0-4.8) k/uL APTT (22.0-30.0) sec D-Dimer 4.89 H (<0.60) mg/L FEU Carbon Dioxide 21 L (22-30) mmol/L Glucose 120 H (74-99) mg/dL Procalcitonin (0.02-0.09) ng/mL Coronavirus (PCR) (Not Detectd) 06/18/21 06/18/21 06/18/21 Range/Units 04:15 04:42 11:08 WBC (3.8-10.6) k/uL Neutrophils # (1.3-7.7) k/uL Lymphocytes # (1.0-4.8) k/uL APTT 43.4 H (22.0-30.0) sec D-Dimer (<0.60) mg/L FEU Carbon Dioxide (22-30) mmol/L Glucose (74-99) mg/dL Procalcitonin 0.15 H (0.02-0.09) ng/mL Coronavirus (PCR) Detected A (Not Detectd) Thrombosis Risk Factor Assmnt - Choose All That Apply Any of the Below Risk Factors Present?: Yes Other Risk Factors: Yes Each Risk Factor Represents 2 Points: Age 61-74 years Each Risk Factor Represents 3 Points: History of DVT/PE Other congenital or acquired thrombophilia - If yes, enter type in comment: No Thrombosis Risk Factor Assessment Total Risk Factor Score: 5 Thrombosis Risk Factor Assessment Level: High Risk
[2021-06-18] MEDS: AZITHROMYCIN 500 MG TAB PO SCH (14:13)
--- NOTE | 2021-06-18 15:36 | P.CNPUL ---
<Bee Weston M - Last Filed: 06/18/21 15:13> History of Present Illness Consult date: 06/18/21 Reason for consult: dyspnea Chief complaint: Shortness of breath History of present illness: A 61-year-old female patient of Dr. Rahul Narayanan with no significant medical history who presented to the emergency department on 06/18/2021 at about 1:00 in the morning for evaluation of left upper chest pain with radiation into the ribs and left posterior shoulder that had started on Friday and has become progressively worse. Patient was unable to lie down or take a deep breath. She was diagnosed with COVID-19 10 days ago. She was seen at the [facility] on Friday and imaging care today. She has not been feeling any better, denies any cough, denies any fever or chills, no nausea or vomiting. Chest x-ray showed bilateral multifocal pneumonia and atelectasis. Admission lab work has been reviewed showing white blood cell count of 14.5, hemoglobin of 13.7, her d- dimer was elevated at 4.8, sodium is 137, potassium is 4.4, chloride is 106, CO2 is 21, BUN of 13 creatinine 0.65. Troponin is less than 0.012, bronchoscopy level was negative at 0.15, patient tested positive for coarse with 19. She is on 2 L of oxygen sat 98%, vital signs have been stable, she has been afebrile, CT angiogram showed patchy peripheral pulmonary interstitial and airspace infiltrates in both lungs. Multiple filling defects in the left lower lobe pulm onary artery, and also several filling defects in the branches of the right lower lobe pulmonary artery. Lower extremity Dopplers were negative for DVT. Patient is currently on heparin infusion, she has also been started on Decadron 6 mg daily, she was started on empiric antibiotics in the form of azithromycin and Rocephin. Vascular surgery has been consulted for possibility of EKOS. Echocardiogram showed left ventricular systolic function within normal limits and EF of 55-60%. There is no evidence of right heart strain on the echocardiogram. Review of Systems All systems: negative Constitutional: Denies chills, Denies fever Eyes: denies blurred vision, denies pain Ears, nose, mouth and throat: Denies headache, Denies sore throat Cardiovascular: Reports chest pain, Denies shortness of breath Respiratory: Reports dyspnea, Denies cough Gastrointestinal: Denies abdominal pain, Denies diarrhea, Denies nausea, Denies vomiting Genitourinary: Denies dysuria, Denies hematuria Musculoskeletal: Denies myalgias Integumentary: Denies pruritus, Denies rash Neurological: Denies numbness, Denies weakness Psychiatric: Denies anxiety, Denies depression Endocrine: Denies fatigue, Denies weight change Past Medical History Past Medical History: GERD/Reflux Additional Past Medical History / Comment(s): Pt covid + 06/08/21 [facility] ER, recently belching alot. History of Any Multi-Drug Resistant Organisms: None Reported Past Surgical History: Tonsillectomy Past Anesthesia/Blood Transfusion Reactions: No Reported Reaction Smoking Status: Former smoker - Past Family History Father Family Medical History: Cancer Additional Family Medical History / Comment(s): Father of lung cancer at the age of 67yrs. He was a smoker. Mother Family Medical History: No Reported History Additional Family Medical History / Comment(s): Mother is healthy and is 84 yrs old. Medications and Allergies Home Medications Medication Instructions Recorded Confirmed Type Ascorbic Acid [Vitamin C] 500 mg PO DAILY 06/18/21 06/18/21 History Azithromycin [Zithromax Z-pack (6 See Taper PO DIRECTED 06/18/21 06/18/21 History tabs)] Cholecalciferol (Vitamin D3) 75 mcg PO DAILY 06/18/21 06/18/21 History [Vitamin D3 (3000 Iu)] Elderberry Fruit and Flower [Black 1 cap PO DAILY 06/18/21 06/18/21 History Elderberry 575 mg Cap] Zinc Gluconate [Zinc] 50 mg PO DAILY 06/18/21 06/18/21 History Allergies Allergy/AdvReac Type Severity Reaction Status Date / Time codeine AdvReac Nausea & Verified 06/18/21 07:07 Vomiting Physical Exam Vitals: Vital Signs Temp Pulse Resp BP Pulse Ox 06/18/21 14:10 89 18 97 06/18/21 12:37 98.3 F 105 H 20 115/74 96 06/18/21 11:00 97 20 97 06/18/21 09:59 92 18 97 06/18/21 08:06 98.2 F 97 18 112/70 98 06/18/21 07:48 98 18 98 06/18/21 07:00 83 16 118/75 96 06/18/21 05:00 97.5 F L 90 18 117/74 99 06/18/21 00:50 99.1 F 105 H 19 110/95 94 L Intake and Output 06/18/21 06/18/21 06/18/21 06:59 14:59 22:59 Intake Total 118.982 Balance 118.982 Intake: Intake, IV Titration 118.982 Amount Heparin Sod,Pork in 0.45% 118.982 NaCl 25,000 unit In 0.45 % NaCl 1 250ml.bag @ 18 UNITS/KG/HR 11.839 mls/hr IV .Q21H7M [facility] Rx#: [id number] Other: Weight 65.771 kg 65.771 kg GENERAL EXAM: Alert, very pleasant, 61-year-old white female, on 2 L of oxygen pulse ox of 97%, resting comfortably in gurney in the emergency department, comfortable in no apparent distress. HEAD: Normocephalic/atraumatic. EYES: Normal reaction of pupils, equal size. Conjunctiva pink, sclera white. NOSE: Clear with pink turbinates. THROAT: No erythema or exudates. NECK: No masses, no JVD, no thyroid enlargement, no adenopathy. CHEST: No chest wall deformity. Symmetrical expansion. LUNGS: Equal air entry with mild basilar crackles CVS: Regular rate and rhythm, normal S1 and S2, no gallops, no murmurs, no rubs ABDOMEN: Soft, nontender. No hepatosplenomegaly, normal bowel sounds, no guarding or rigidity. EXTREMITIES: No clubbing, no edema, no cyanosis, 2+ pulses and upper and lower extremities. MUSCULOSKELETAL: Muscle strength and tone normal. SPINE: No scoliosis or deformity SKIN: No rashes CENTRAL NERVOUS SYSTEM: Alert and oriented -3. No focal deficits, tone is normal in all 4 extremities. PSYCHIATRIC: Alert and oriented -3. Appropriate affect. Intact judgment and insight. Results - Laboratory Findings CBC and BMP: 06/18/21 01:43 06/18/21 01:43 PT/INR, D-dimer PT 11.6 sec (9.0-12.0) 06/18/21 01:43 INR 1.1 (<1.2) 06/18/21 01:43 D-Dimer 4.89 mg/L FEU (<0.60) H 06/18/21 01:43 Abnormal lab findings: Abnormal Labs 06/18/21 06/18/21 06/18/21 01:43 01:43 01:43 WBC 14.5 H Neutrophils # 12.5 H Lymphocytes # 0.8 L APTT D-Dimer 4.89 H Carbon Dioxide 21 L Glucose 120 H Procalcitonin Coronavirus (PCR) 06/18/21 06/18/21 06/18/21 04:15 04:42 11:08 WBC Neutrophils # Lymphocytes # APTT 43.4 H D-Dimer Carbon Dioxide Glucose Procalcitonin 0.15 H Coronavirus (PCR) Detected A - Diagnostic Findings Chest x-ray: report reviewed, image reviewed Additional studies: Echocardiogram results reviewed, CTA chest, venous Doppler, EKG reviewed Assessment and Plan Plan: Assessment: #1. Acute hypoxic respiratory failure related to acute COVID-19 related pneumonia and acute pulmonary emboli. Patient presented to the emergency department on 06/18/2021 with 10 day history of positive COVID-19 diagnosis. Outside the window for Remdesivir, currently on Decadron, heparin infusion for newly diagnosed bilateral pulmonary emboli. #2. Multiple bilateral pulmonary emboli, likely related to acute COVID-19 infection. Currently on heparin infusion. Echocardiogram showed normal evidence of right ventricular strain. Hemodynamically patient is stable. Vascular surgery is following #3. GERD/reflux #4. Remote history of tobacco use Plan: Continue with Decadron Continue on heparin infusion No evidence of strain on echocardiogram, hemodynamically patient remains stable No evidence of DVTs in bilateral lower extremities Consider switching the patient to oral anticoagulation tomorrow Continue multivitamins, patient is outside the window for Remdesivir Obtain pro-calcitonin level Obtain inflammatory markers We'll continue to follow her clinical course and make further recommendations I performed a history & physical examination of the patient and discussed their management with my nurse practitioner, Bee Weston. I reviewed the nurse practitioner's note and agree with the documented findings and plan of care. Lung sounds are positive for dim breath sounds throughout the lung jackson. The findings and the impression was discussed with the patient. I attest to the documentation by the nurse practitioner. Time with Patient: Greater than 30 <Devan Lopes - Last Filed: 01/31/22 15:58> Physical Exam Vitals: Vital Signs Temp Pulse Resp BP Pulse Ox 06/18/21 14:10 89 18 97 06/18/21 12:37 98.3 F 105 H 20 115/74 96 06/18/21 11:00 97 20 97 06/18/21 09:59 92 18 97 06/18/21 08:06 98.2 F 97 18 112/70 98 06/18/21 07:48 98 18 98 06/18/21 07:00 83 16 118/75 96 06/18/21 05:00 97.5 F L 90 18 117/74 99 06/18/21 00:50 99.1 F 105 H 19 110/95 94 L Intake and Output 06/18/21 06/18/21 06/18/21 06:59 14:59 22:59 Intake Total 118.982 Balance 118.982 Intake: Intake, IV Titration 118.982 Amount Heparin Sod,Pork in 0.45% 118.982 NaCl 25,000 unit In 0.45 % NaCl 1 250ml.bag @ 18 UNITS/KG/HR 11.839 mls/hr IV .Q21H7M [facility] Rx#: [id number] Other: Weight 65.771 kg 65.771 kg Results - Laboratory Findings CBC and BMP: 06/18/21 01:43 06/18/21 01:43 ABG WBC 14.5 k/uL (3.8-10.6) H 06/18/21 01:43 RBC 4.63 m/uL (3.80-5.40) 06/18/21 01:43 Hgb 13.7 gm/dL (11.4-16.0) 06/18/21 01:43 Hct 41.3 % (34.0-46.0) 06/18/21 01:43 MCV 89.3 fL (80.0-100.0) 06/18/21 01:43 MCH 29.6 pg (25.0-35.0) 06/18/21 01:43 MCHC 33.1 g/dL (31.0-37.0) 06/18/21 01:43 RDW 12.3 % (11.5-15.5) 06/18/21 01:43 Plt Count 414 k/uL (150-450) D 06/18/21 01:43 MPV 7.8 06/18/21 01:43 Neutrophils % 86 % 06/18/21 01:43 Lymphocytes % 6 % 06/18/21 01:43 Monocytes % 6 % 06/18/21 01:43 Eosinophils % 1 % 06/18/21 01:43 Basophils % 0 % 06/18/21 01:43 Neutrophils # 12.5 k/uL (1.3-7.7) H 06/18/21 01:43 Lymphocytes # 0.8 k/uL (1.0-4.8) L 06/18/21 01:43 Monocytes # 0.8 k/uL (0-1.0) 06/18/21 01:43 Eosinophils # 0.1 k/uL (0-0.7) 06/18/21 01:43 Basophils # 0.0 k/uL (0-0.2) 06/18/21 01:43 PT 11.6 sec (9.0-12.0) 06/18/21 01:43 INR 1.1 (<1.2) 06/18/21 01:43 APTT 43.4 sec (22.0-30.0) H 06/18/21 11:08 D-Dimer 4.89 mg/L FEU (<0.60) H 06/18/21 01:43 Sodium 137 mmol/L (137-145) 06/18/21 01:43 Potassium 4.4 mmol/L (3.5-5.1) 06/18/21 01:43 Chloride 106 mmol/L (98-107) 06/18/21 01:43 Carbon Dioxide 21 mmol/L (22-30) L 06/18/21 01:43 Anion Gap 10 mmol/L 06/18/21 01:43 BUN 13 mg/dL (7-17) 06/18/21 01:43 Creatinine 0.65 mg/dL (0.52-1.04) 06/18/21 01:43 Est GFR (CKD-EPI)AfAm >90 (>60 ml/min/1.73 sqM) 06/18/21 01:43 Est GFR (CKD-EPI)NonAf >90 (>60 ml/min/1.73 sqM) 06/18/21 01:43 Glucose 120 mg/dL (74-99) H 01/31/22 01:43 Calcium 9.0 mg/dL (8.4-10.2) 06/18/21 01:43 Magnesium 2.3 mg/dL (1.6-2.3) 06/18/21 01:43 Total Bilirubin 0.9 mg/dL (0.2-1.3) 06/18/21 01:43 AST 31 U/L (14-36) 06/18/21 01:43 ALT 28 U/L (4-34) 06/18/21 01:43 Alkaline Phosphatase 100 U/L (38-126) 06/18/21 01:43 Troponin I <0.012 ng/mL (0.000-0.034) 06/18/21 01:43 Total Protein 7.9 g/dL (6.3-8.2) 06/18/21 01:43 Albumin 3.6 g/dL (3.5-5.0) 06/18/21 01:43 Procalcitonin 0.15 ng/mL (0.02-0.09) H 06/18/21 04:15 Coronavirus (PCR) Detected (Not Detectd) A 06/18/21 04:42 PT/INR, D-dimer PT 11.6 sec (9.0-12.0) 06/18/21 01:43 INR 1.1 (<1.2) 06/18/21 01:43 D-Dimer 4.89 mg/L FEU (<0.60) H 06/18/21 01:43 Abnormal lab findings: Abnormal Labs 06/18/21 06/18/21 06/18/21 01:43 01:43 01:43 WBC 14.5 H Neutrophils # 12.5 H Lymphocytes # 0.8 L APTT D-Dimer 4.89 H Carbon Dioxide 21 L Glucose 120 H Procalcitonin Coronavirus (PCR) 06/18/21 06/18/21 06/18/21 04:15 04:42 11:08 WBC Neutrophils # Lymphocytes # APTT 43.4 H D-Dimer Carbon Dioxide Glucose Procalcitonin 0.15 H Coronavirus (PCR) Detected A
[2021-06-19] MEDS: HEPARIN SOD,PORK IN 0.45% NACL 25,000 UNIT in 0.45% NACL 1 250ML.BAG IV SCH (01:22)
[2021-06-19] MEDS: SODIUM CHLORIDE 0.9% 1,000 ML IV SCH (05:48)
[2021-06-19] MEDS: PANTOPRAZOLE 40 MG TABLET PO SCH (06:19)
[2021-06-19 08:11] LABS: Basophils % (A) 0 %; Eosinophils # (A) 0.1 k/uL (0-0.7); Eosinophils % (A) 0 %; HGB 13.3 gm/dL (11.4-16.0); Lymphocytes # (A) 0.7 k/uL (1.0-4.8); Lymphocytes % (A) 5 %; MCH 29.4 pg (25.0-35.0); MCHC 31.6 g/dL (31.0-37.0); MCV 92.8 fL (80.0-100.0); Monocytes # (A) 0.6 k/uL (0-1.0); Monocytes % (A) 4 %; Neutrophils # (A) 14.7 k/uL (1.3-7.7); Neutrophils % (A) 91 %; Platelet Count 387 k/uL (150-450); RBC 4.52 m/uL (3.80-5.40); RDW 12.5 % (11.5-15.5); WBC 16.2 k/uL (3.8-10.6)
[2021-06-19] MEDS: ZINC SULFATE 220 MG CAP PO SCH (09:18)
[2021-06-19] MEDS: AZITHROMYCIN 500 MG TAB PO SCH (09:18)
[2021-06-19] MEDS: DEXAMETHASONE SOD PHOSPHATE 10 MG/ML 1 ML VIAL IVP SCH (09:19)
[2021-06-19] MEDS: ASCORBIC ACID 500 MG TAB PO SCH (09:19)
[2021-06-19] MEDS: CHOLECALCIFEROL 25 MCG (1000 IU) TABLET PO SCH (09:19)
[2021-06-19] MEDS: APIXABAN 5 MG TAB PO SCH ×2 (09:40→19:55)
--- NOTE | 2021-06-19 11:02 | P.PN ---
Subjective Progress Note Date: 06/19/21 A 61-year-old female patient of Dr. Rahul Narayanan with no significant medical history who presented to the emergency department on 06/18/2021 at about 1:00 in the morning for evaluation of left upper chest pain with radiation into the ribs and left posterior shoulder that had started on Friday and has become progressively worse. Patient was unable to lie down or take a deep breath. She was diagnosed with COVID-19 10 days ago. She was seen at the [place] [facility] on Friday and imaging care today. She has not been feeling any better, denies any cough, denies any fever or chills, no nausea or vomiting. Chest x-ray showed bilateral multifocal pneumonia and atelectasis. Admission lab work has been reviewed showing white blood cell count of 14.5, hemoglobin of 13.7, her d- dimer was elevated at 4.8, sodium is 137, potassium is 4.4, chloride is 106, CO2 is 21, BUN of 13 creatinine 0.65. Troponin is less than 0.012, bronchoscopy level was negative at 0.15, patient tested positive for coarse with 19. She is on 2 L of oxygen sat 98%, vital signs have been stable, she has been afebrile, CT angiogram showed patchy peripheral pulmonary interstitial and airspace infilt rates in both lungs. Multiple filling defects in the left lower lobe pulmonary artery, and also several filling defects in the branches of the right lower lobe pulmonary artery. Lower extremity Dopplers were negative for DVT. Patient is currently on heparin infusion, she has also been started on Decadron 6 mg daily, she was started on empiric antibiotics in the form of azithromycin and Rocephin. Vascular surgery has been consulted for possibility of EKOS. Echocardiogram showed left ventricular systolic function within normal limits and EF of 55-60%. There is no evidence of right heart strain on the echocardiogram. On today's evaluation of 06/19/2021, the patient is doing well. No specific complaints. The patient on 2 L of O2 by nasal cannula with a pulse ox of 92%. She reports improvement in her respiratory status. She is less short of breath compared to yesterday. She is having some limited proceed along the left posterior chest area. No hemoptysis. Hemodynamically stable. Doppler of the lower oximetry was done and it showed no evidence of any DVT. The patient remains on IV heparin. The patient has a normal echocardiogram with an ejection fraction of 55-60%. No evidence of any right ventricular strain based on echocardiogram. She remains hemodynamically stable. Blood work from today shows a white cell count of 16 and the patient has a hemoglobin of 13.3. PTT therapeutic at 44 as the patient's been therapeutically maintain on IV heparin. Objective - Vital Signs Vital signs: Vital Signs Temp 97.8 F 06/19/21 09:16 Pulse 94 06/19/21 09:16 Resp 16 06/19/21 09:16 BP 114/56 06/19/21 09:16 Pulse Ox 92 L 06/19/21 09:16 Intake & Output 06/18/21 06/19/21 06/19/21 18:59 06:59 18:59 Intake Total 128.982 131.018 180 Balance 128.982 131.018 180 Weight 65.771 kg Intake: IV 10 Invasive Line 2 10 Intake, IV Titration 118.982 131.018 Amount Heparin Sod,Pork in 0.45% 118.982 131.018 NaCl 25,000 unit In 0.45 % NaCl 1 250ml.bag @ 18 UNITS/KG/HR 11.839 mls/hr IV .Q21H7M [facility] Rx#: [id number] Oral 180 Other: Voiding Method Toilet Toilet # Voids 1 - Exam GENERAL EXAM: Alert, very pleasant, 61-year-old white female, on 2 L of oxygen pulse ox of 97%, resting comfortably in rney in the emergency department, comfortable in no apparent distress. HEAD: Normocephalic/atraumatic. EYES: Normal reaction of pupils, equal size. Conjunctiva pink, sclera white. NOSE: Clear with pink turbinates. THROAT: No erythema or exudates. NECK: No masses, no JVD, no thyroid enlargement, no adenopathy. CHEST: No chest wall deformity. Symmetrical expansion. LUNGS: Equal air entry with mild basilar crackles CVS: Regular rate and rhythm, normal S1 and S2, no gallops, no murmurs, no rubs ABDOMEN: Soft, nontender. No hepatosplenomegaly, normal bowel sounds, no guarding or rigidity. EXTREMITIES: No clubbing, no edema, no cyanosis, 2+ pulses and upper and lower extremities. MUSCULOSKELETAL: Muscle strength and tone normal. SPINE: No scoliosis or deformity SKIN: No rashes CENTRAL NERVOUS SYSTEM: Alert and oriented -3. No focal deficits, tone is normal in all 4 extremities. PSYCHIATRIC: Alert and oriented -3. Appropriate affect. Intact judgment and insight. - Labs CBC & Chem 7: 06/19/21 07:46 06/18/21 01:43 Labs: Abnormal Lab Results - Last 24 Hours (Table) 06/18/21 06/18/21 06/19/21 Range/Units 11:08 21:09 07:46 WBC 16.2 H (3.8-10.6) k/uL Neutrophils # 14.7 H (1.3-7.7) k/uL Lymphocytes # 0.7 L (1.0-4.8) k/uL APTT 43.4 H 59.6 H (22.0-30.0) sec 06/19/21 Range/Units 07:46 WBC (3.8-10.6) k/uL Neutrophils # (1.3-7.7) k/uL Lymphocytes # (1.0-4.8) k/uL APTT 44.4 H (22.0-30.0) sec Assessment and Plan Plan: #1. Acute hypoxic respiratory failure related to acute COVID-19 related pneumonia and acute pulmonary emboli. Patient presented to the emergency department on 06/18/2021 with 10 day history of positive COVID-19 diagnosis. Outside the window for Remdesivir, currently on Decadron, heparin infusion for newly diagnosed bilateral pulmonary emboli. #2. Multiple bilateral pulmonary emboli, likely related to acute COVID-19 infection. Currently on heparin infusion. Echocardiogram showed normal evidence of right ventricular strain. Hemodynamically patient is stable. Vascular surgery is following #3. GERD/reflux #4. Remote history of tobacco use Plan Doppler of lower extremity has been negative No evidence of any RV strain pattern based on echocardiogram This continued IV heparin and put the patient on Eliquis regarding pulmonary embolism Monitor oxygenation and wean off the FiO2 as tolerated to maintain saturation above 90% No need for antibiotics at this point in time. Repeat a chest x-ray within next 24 hours.
[2021-06-19] MEDS ORDERED: traMADol 50 MG TAB PO PRN (12:01)
[2021-06-19 12:35] VITALS: RESP 18
--- NOTE | 2021-06-19 14:20 | P.PN ---
Subjective Progress Note Date: 06/19/21 Was seen and examined as a follow-up for pulmonary embolism. She sitting up in the bedside chair. She states she is feeling better. Not in this much pain and shortness of breath has improved. She has been transitioned from her heparin drip to Eliquis. Echocardiogram was a limited report that showed overall left ventricular systolic function that was normal with an EF between 55 and 60%. CT angiogram of chest was reviewed by Dr. Sutherland showing no significant clot burden and no heart strain. Objective - Vital Signs Vital signs: Vital Signs Temp 97.8 F 06/19/21 09:16 Pulse 94 06/19/21 09:16 Resp 16 06/19/21 09:16 BP 114/56 06/19/21 09:16 Pulse Ox 92 L 06/19/21 09:16 Intake & Output 06/18/21 06/19/21 06/19/21 18:59 06:59 18:59 Intake Total 128.982 131.018 180 Balance 128.982 131.018 180 Weight 65.771 kg Intake: IV 10 Invasive Line 2 10 Intake, IV Titration 118.982 131.018 Amount Heparin Sod,Pork in 0.45% 118.982 131.018 NaCl 25,000 unit In 0.45 % NaCl 1 250ml.bag @ 18 UNITS/KG/HR 11.839 mls/hr IV .Q21H7M [facility] Rx#: [id number] Oral 180 Other: Voiding Method Toilet Toilet # Voids 1 - Exam General appearance: The patient is alert, oriented, appears in no acute distress. HET: Head is normocephalic and atraumatic. Pupils are equal and reactive. Neck: Supple without lymphadenopathy. Trachea midline. No audible carotid bruit. Heart: S1 S2. Regular rate and rhythm. Lungs: Clear to auscultation bilaterally. Abdomen: Soft, nontender, nondistended. Extremities: Normal skin color and turgor. No cyanosis, rash, ulceration, clubbing, or edema. Radial and pedal pulses are 2/4 bilaterally. Neurological: No focal deficits. Strength and sensation are grossly intact. - Labs CBC & Chem 7: 06/19/21 07:46 06/18/21 01:43 Labs: Abnormal Lab Results - Last 24 Hours (Table) 0106/18/21 06/19/21 Range/Units 11:08 21:09 07:46 WBC 16.2 H (3.8-10.6) k/uL Neutrophils # 14.7 H (1.3-7.7) k/uL Lymphocytes # 0.7 L (1.0-4.8) k/uL APTT 43.4 H 59.6 H (22.0-30.0) sec 06/19/21 Range/Units 07:46 WBC (3.8-10.6) k/uL Neutrophils # (1.3-7.7) k/uL Lymphocytes # (1.0-4.8) k/uL APTT 44.4 H (22.0-30.0) sec Assessment and Plan Assessment: 1. Multiple bilateral pulmonary emboli 2. COVID-19 positive 3. Musculoskeletal pain Plan: 1. Agree with transition to Eliquis, patient will need to continue for 6 months 2. No indication for EKOS 3. Patient is cleared from vascular surgery for discharge once otherwise medically stable. Thank you for this consultation, vascular surgery will sign off at this time. The impression and plan of care has been dictated as directed. Dr. Sutherland I performed a history and examination of this patient, discussed the same with the dictator. I agree with the dictator's note ,documented as a scribe. Any additional findings or plans will be noted.
--- NOTE | 2021-06-19 15:12 | P.PN ---
Subjective Progress Note Date: 06/19/21 HISTORY OF PRESENT ILLNESS This is a 61-year-old female patient of Dr. Rahul Narayanan with past medical history of gastroesophageal reflux disease shortness of breath weakness. Ray kay was seen in the emergency center on June 08 was diagnosed with Covid 19, discharged with vitamins and follow-up with her PCP. CAT scan of the abdomen and pelvis at that time showed mild subpleural interstitial infiltrates. Negative CAT scan of the abdomen and pelvis. Chest x-ray showed mild peripheral pulmonary interstitial infiltrates. Patient then returned on 06/18 with complaints of left-sided chest pain into the left shoulder with tenderness and more pain with deep inspiration. She is complaining of shortness of breath. Patient was found to be afebrile, heart rate 90, blood pressure 117/74, pulse ox 99% on 2 L. D-dimer was 4.89. WBC 14.5, hemoglobin 13.7, platelet count 4 14. CO2 21, creatinine 0.65. Pro-calcitonin 0.15. Patient is seen today in the emergency center waiting for bed on the cardiac stepdown unit, consult in place with pulmonary medicine and vascular surgery. 06/19: Patient has been seen by pulmonary medicine this morning and started on eliquis, we have sent a prescription through to the [facility] pharmacy. Patient does not have any insurance. She will receive one month free. Patient continues to complain of left-sided chest pain with deep inspiration. She's been afebrile, heart rate 94, blood pressure 114/56, pulse ox 92% on 2 L nasal cannula. WBC 16.2, hemoglobin 13.3 and platelet count 387. Repeat chest x-ray ordered for tomorrow morning. Pulmonary medicine has advised that no antibiotics are necessary and we will discontinue antibiotics. REVIEW OF SYSTEMS Constitutional: No fever, no chills, no night sweats. No weight change. Reports weakness, Reports fatigue Reports lethargy. No daytime sleepiness. EENT: No headache. No blurred vision or double vision, no loss of vision. No loss of Hearing, no ringing in the ears, no dizziness. No nasal drainage or congestion. No epistaxis. No sore throat. Lungs: Reports shortness of breath, improved, cough, no sputum production. No wheezing. Cardiovascular: Reports chest pain, no lower extremity edema. No palpitations. No paroxysmal nocturnal dyspnea. No orthopnea. No lightheadedness or dizziness. No syncopal episodes. Abdominal: No abdominal pain. No nausea, vomiting. No diarrhea. No constipation. No bloody or tarry stools. No loss of appetite. Genitourinary: No dysuria, increased frequency, urgency. No urinary retention. Musculoskeletal: No myalgias. No muscle weakness, no gait dysfunction, no frequent falls. No back pain. No neck pain. Integumentary: No wounds, no lesions. No rash or pruritus. No unusual bruising. No change in hair or nails. Neurologic: No aphasia. No facial droop. No change in mentation. No head injury. No headache. No paralysis. No paresthesia. Psychiatric: No depression. No anxiety. No mood swings. Endocrine: No abnormal blood sugars. No weight change. No excessive sweating or thirst. No cold intolerance. PHYSICAL EXAMINATION Gen: This is a 61-year-old female. She is resting on the ER stretcher. Patient appears to be fatigued. HEENT: Head is atraumatic, normocephalic. Pupils equal, round. Sclerae is anicteric. NECK: Supple. No JVD. No lymphadenopathy. No thyromegaly. LUNGS: Bilateral rhonchi. No intercostal retractions. HEART: Regular rate and rhythm. No murmur. ABDOMEN: Soft. Bowel sounds are present. No masses. No tenderness. EXTREMITIES: No pedal edema. No calf tenderness. dorsalis pedis +2 bilaterally. NEUROLOGICAL: Patient is awake, alert and oriented x3. Cranial nerves 2 through 12 are grossly intact. ASSESSMENT AND PLAN 1. Acute Covid 19 pneumonia. Discontinue azithromycin, ceftriaxone, continue vitamin supplements, dexamethasone 6 mg IV daily, consult with pulmonary medicine. Repeat CXR tomorrow. 2. Acute bilateral pulmonary embolism. Patient's been started on heparin drip transitioned to Eliquis. Prescription sent to pharmacy and case briefer with make arrangements for one month free, vascular surgery consult appreciated. 3. Acute chest pain with chest wall tenderness. One dose of Toradol, Dilaudid will be transitioned to Tramadol. 4. Gastroesophageal reflux disease. Patient started on Protonix 40 mg daily. 5. Remote history of tobacco use. 6. DVT prophylaxis. Eliquis. DISCHARGE PLAN Home. Impression and plan of care have been directed as dictated by the signing physician. Marnie Horvath nurse practitioner acting as scribe for signing physician. Objective - Vital Signs Vital signs: Vital Signs Temp 97.8 F 06/19/21 09:16 Pulse 94 06/19/21 09:16 Resp 16 06/19/21 09:16 BP 114/56 06/19/21 09:16 Pulse Ox 92 L 06/19/21 09:16 Intake & Output 06/18/21 06/19/21 06/19/21 18:59 06:59 18:59 Intake Total 128.982 131.018 180 Balance 128.982 131.018 180 Weight 65.771 kg Intake: IV 10 Invasive Line 2 10 Intake, IV Titration 118.982 131.018 Amount Heparin Sod,Pork in 0.45% 118.982 131.018 NaCl 25,000 unit In 0.45 % NaCl 1 250ml.bag @ 18 UNITS/KG/HR 11.839 mls/hr IV .Q21H7M [facility] Rx#: [id number] Oral 180 Other: Voiding Method Toilet Toilet # Voids 1 - Labs CBC & Chem 7: 06/19/21 07:46 06/18/21 01:43 Labs: Abnormal Lab Results - Last 24 Hours (Table) 06/18/21 06/18/21 06/19/21 Range/Units 11:08 21:09 07:46 WBC 16.2 H (3.8-10.6) k/uL Neutrophils # 14.7 H (1.3-7.7) k/uL Lymphocytes # 0.7 L (1.0-4.8) k/uL APTT 43.4 H 59.6 H (22.0-30.0) sec 06/19/21 Range/Units 07:46 WBC (3.8-10.6) k/uL Neutrophils # (1.3-7.7) k/uL Lymphocytes # (1.0-4.8) k/uL APTT 44.4 H (22.0-30.0) sec
[2021-06-20] MEDS: PANTOPRAZOLE 40 MG TABLET PO SCH (05:42)
--- NOTE | 2021-06-20 07:26 | XR ---
EXAMINATION TYPE: XR chest 1V portable DATE OF EXAM: 06/20/2021 HISTORY: Shortness of breath. COMPARISON: 06/18/2021 TECHNIQUE: Single view of the chest is submitted. FINDINGS: Demonstrated are scattered senescent parenchymal change. Improved aeration right lower lobe although there is persistent scattered peripheral infiltrates bila terally as well as at the left lung base. The heart is stable. Hilar and mediastinal structures are within normal limits. Degenerative changes are seen of the dorsal spine. IMPRESSION: 1. Improved aeration right lower lobe although there is persistent scattered peripheral infiltrates bilaterally as well as at the left lung base.
[2021-06-20 09:56] VITALS: TEMP 97.7
[2021-06-20] MEDS: CHOLECALCIFEROL 25 MCG (1000 IU) TABLET PO SCH (09:57)
[2021-06-20] MEDS: ZINC SULFATE 220 MG CAP PO SCH (09:57)
[2021-06-20] MEDS: APIXABAN 5 MG TAB PO SCH (09:57)
[2021-06-20] MEDS: DEXAMETHASONE SOD PHOSPHATE 10 MG/ML 1 ML VIAL IVP SCH (09:57)
[2021-06-20] MEDS: ASCORBIC ACID 500 MG TAB PO SCH (09:57)
--- NOTE | 2021-06-20 12:36 | P.DS ---
Providers Date of admission: 06/18/21 03:12 Expected date of discharge: 06/20/21 Attending physician: Kathrine Snyder Consults: 06/18/21 03:53 Consult Physician Routine Consulting Provider: Amador Krishnamurthy Consult Reason/Comments: Multiple bilateral PE Do you want consulting provider notified?: Yes Primary care physician: Rahul Narayanan [facility] Course: HISTORY OF PRESENT ILLNESS This is a 61-year-old female patient of Dr. Rahul Narayanan with past medical history of gastroesophageal reflux disease shortness of breath weakness. Patient was seen in the emergency center on June 08 was diagnosed with Covid 19, discharged with vitamins and follow-up with her PCP. CAT scan of the abdomen and pelvis at that time showed mild subpleural interstitial infiltrates. Negative CAT scan of the abdomen and pelvis. Chest x-ray showed mild peripheral pulmonary interstitial infiltrates. Patient then returned on 06/18 with complaints of left-sided chest pain into the left shoulder with tenderness and more pain with deep inspiration. She is complaining of shortness of breath. Patient was found to be afebrile, heart rate 90, blood pressure 117/74, pulse ox 99% on 2 L. D-dimer was 4.89. WBC 14.5, hemoglobin 13.7, platelet count 414. CO2 21, creatinine 0.65. Pro-calcitonin 0.15. Patient is seen today in the emergency center waiting for bed on the cardiac stepdown unit, consult in place with pulmonary medicine and vascular surgery. 06/19: Patient has been seen by pulmonary medicine this morning and started on eliquis, we have sent a prescription through to the [facility] pharmacy. Patient does not have any insurance. She will receive one month free. Patient continues to complain of left-sided chest pain with deep inspiration. She's been afebrile, heart rate 94, blood pressure 114/56, pulse ox 92% on 2 L nasal cannula. WBC 16.2, hemoglobin 13.3 and platelet count 387. Repeat chest x-ray ordered for tomorrow morning. Pulmonary medicine has advised that no antibiotics are necessary and we will discontinue antibiotics. 06/20: Vascular has cleared patient for discharge with recommendations for anticoagulation for 6 mos. She was transitioned to Eliquis yesterday. Repeat CXR reveals improved aeration RLL, persistent scattered infiltrates bilat. Patient followed closely by pulmonary medicine. She has been afebrile, HR 87, BP 120/60, PO 93-98 % on 2L n/c. We will ask for home O2 assessment. She will be discharged home today in stable condition. DISCHARGE DIAGNOSES 1. Acute Covid 19 pneumonia. 2. Acute bilateral pulmonary embolism. 3. Acute chest pain with chest wall tenderness. 4. Gastroesophageal reflux disease. 5. Remote history of tobacco use. DISCHARGE PLAN Home. Greater than 35 minutes was utilized and coordinating patient's discharge. Impression and plan of care have been directed as dictated by the signing physician. Marnie Horvath nurse practitioner acting as scribe for signing physician. Patient Condition at Discharge: Good Plan - Discharge Summary Discharge Rx Participant: No New Discharge Prescriptions: New methylPREDNISolone Dose Pack [Medrol Dose Pack] 4 mg PO DIRECTED #21 tab Apixaban [Eliquis Starter Pack (for VTE)] 5 - 10 mg PO DIRECTED 30 Days #1 each Levofloxacin [Levaquin] 500 mg PO DAILY 5 Days #5 tab Discontinued Zinc Gluconate [Zinc] 50 mg PO DAILY Ascorbic Acid [Vitamin C] 500 mg PO DAILY Cholecalciferol (Vitamin D3) [Vitamin D3 (3000 Iu)] 75 mcg PO DAILY Azithromycin [Zithromax Z-pack (6 tabs)] See Taper PO DIRECTED Elderberry Fruit and Flower [Black Elderberry 575 mg Cap] 1 cap PO DAILY Discharge Medication List Apixaban [Eliquis Starter Pack (for VTE)] 5 - 10 mg PO DIRECTED 30 Days #1 each 06/19/21 [Rx] Levofloxacin [Levaquin] 500 mg PO DAILY 5 Days #5 tab 06/20/21 [Rx] methylPREDNISolone Dose Pack [Medrol Dose Pack] 4 mg PO DIRECTED #21 tab 06/20/21 [Rx] Follow up Appointment(s)/Referral(s): Rahul Narayanan MD [Primary Care Provider] - 1 Week (call to make follow up appointment ) Devan Lopes MD [STAFF PHYSICIAN] - 07/25/21 1:30 pm Patient Instructions/Handouts: Pulmonary Embolism (DC) Discharge Disposition: HOME SELF-CARE
[2021-06-20 14:03] VITALS: BP 162/70; PULSE 72
--- NOTE | 2021-06-20 14:34 | P.PN ---
Subjective Progress Note Date: 06/20/21 A 61-year-old female patient of Dr. Rahul Narayanan with no significant medical history who presented to the emergency department on 06/18/2021 at about 1:00 in the morning for evaluation of left upper chest pain with radiation into the ribs and left posterior shoulder that had started on Friday and has become progressively worse. Patient was unable to lie down or take a deep breath. She was diagnosed with COVID-19 10 days ago. She was seen at the [facility] on Friday and imaging care today. She has not been feeling any better, denies any cough, denies any fever or chills, no nausea or vomiting. Chest x-ray showed bilateral multifocal pneumonia and atelectasis. Admission lab work has been reviewed showing white blood cell count of 14.5, hemoglobin of 13.7, her d- dimer was elevated at 4.8, sodium is 137, potassium is 4.4, chloride is 106, CO2 is 21, BUN of 13 creatinine 0.65. Troponin is less than 0.012, bronchoscopy level was negative at 0.15, patient tested positive for coarse with 19. She is on 2 L of oxygen sat 98%, vital signs have been stable, she has been afebrile, CT angiogram showed patchy peripheral pulmonary interstitial and airspace infilt rates in both lungs. Multiple filling defects in the left lower lobe pulmonary artery, and also several filling defects in the branches of the right lower lobe pulmonary artery. Lower extremity Dopplers were negative for DVT. Patient is currently on heparin infusion, she has also been started on Decadron 6 mg daily, she was started on empiric antibiotics in the form of azithromycin and Rocephin. Vascular surgery has been consulted for possibility of EKOS. Echocardiogram showed left ventricular systolic function within normal limits and EF of 55-60%. There is no evidence of right heart strain on the echocardiogram. On today's evaluation of 06/19/2021, the patient is doing well. No specific complaints. The patient on 2 L of O2 by nasal cannula with a pulse ox of 92%. She reports improvement in her respiratory status. She is less short of breath compared to yesterday. She is having some limited proceed along the left posterior chest area. No hemoptysis. Hemodynamically stable. Doppler of the lower oximetry was done and it showed no evidence of any DVT. The patient remains on IV heparin. The patient has a normal echocardiogram with an ejection fraction of 55-60%. No evidence of any right ventricular strain based on echocardiogram. She remains hemodynamically stable. Blood work from today shows a white cell count of 16 and the patient has a hemoglobin of 13.3. PTT therapeutic at 44 as the patient's been therapeutically maintain on IV heparin. 06/20/2021, the patient is calm and comfortable and her pulse ox is ranging between 95-90% liters of oxygen nasal cannula. No cough. No sputum production. A repeat chest x-ray was showing improvement in aeration of the right lower lobe. The patient is on anticoagulation. The patient has no complaints. . No new labs otherwise for today. The patient has a white cell, 16.2 with a 15.3 and a platelet count of 387 from yesterday.. The patient is on Decadron 6 mg IV every 24 hours. The patient remains on anticoagulation with Eliquis per protocol. Clinically the patient reports marked improvement in her symptoms compared to yesterday. I'll proceed has subsided and the patient is feeling much less anxious compared to yesterday. No signs of any bleeding. No hemoptysis. No pleurisy. Echocardiac En[place] was within normal limits. Objective - Vital Signs Vital signs: Vital Signs Temp 97.7 F 06/20/21 09:55 Pulse 72 06/20/21 12:00 Resp 18 06/20/21 12:00 BP 162/70 06/20/21 12:00 Pulse Ox 91 L 06/20/21 12:00 Intake & Output 06/19/21 06/20/21 06/20/21 18:59 06:59 18:59 Intake Total 180 360 Balance 180 360 Intake: Oral 180 360 Other: Voiding Method Toilet Toilet Toilet # Voids 1 3 - Exam GENERAL EXAM: Alert, very pleasant, 61-year-old white female, on 2 L of oxygen pulse ox of 97%, resting comfortably in [place] in the emergency department, comfortable in no apparent distress. HEAD: Normocephalic/atraumatic. EYES: Normal reaction of pupils, equal size. Conjunctiva pink, sclera white. NOSE: Clear with pink turbinates. THROAT: No erythema or exudates. NECK: No masses, no JVD, no thyroid enlargement, no adenopathy. CHEST: No chest wall deformity. Symmetrical expansion. LUNGS: Equal air entry with mild basilar crackles CVS: Regular rate and rhythm, normal S1 and S2, no gallops, no murmurs, no rubs ABDOMEN: Soft, nontender. No hepatosplenomegaly, normal bowel sounds, no guarding or rigidity. EXTREMITIES: No clubbing, no edema, no cyanosis, 2+ pulses and upper and lower extremities. MUSCULOSKELETAL: Muscle strength and tone normal. SPINE: No scoliosis or deformity SKIN: No rashes CENTRAL NERVOUS SYSTEM: Alert and oriented -3. No focal deficits, tone is normal in all 4 extremities. PSYCHIATRIC: Alert and oriented -3. Appropriate affect. Intact judgment and insight. - Labs CBC & Chem 7: 06/19/21 07:46 06/18/21 01:43 Assessment and Plan Plan: #1. Acute hypoxic respiratory failure related to acute COVID-19 related pneumonia and acute pulmonary emboli. Patient presented to the emergency department on 06/18/2021 with 10 day history of positive COVID-19 diagnosis. Outside the window for Remdesivir, currently on Decadron, heparin infusion for newly diagnosed bilateral pulmonary emboli. Clinically the patient is stable and the patient is currently on 2 L O2 to maintain a saturation between 95-98%. The patient is clinically improved and the patient's hypoxemia and a chest x-ray findings are also improved.. #2. Multiple bilateral pulmonary emboli, likely related to acute COVID-19 infection. Currently on anticoagulation with Eliquis.. Echocardiogram showed normal evidence of right ventricular strain. Hemodynamically patient is stable. #3. GERD/reflux #4. Remote history of tobacco use Plan Doppler of lower extremity has been negative No evidence of any RV strain pattern based on echocardiogram Continue oral Eliquis Monitor oxygenation and wean off the FiO2 as tolerated to maintain saturation above 90% No need for antibiotics at this point in time. Repeat chest x-rays improving. Possible discharge on anticoagulation. I do not see that he need for antibiotic treatment at this point in time. Will follow up this patient outpatient basis.
[2021-06-26] MEDS ORDERED: APIXABAN 5 MG TAB PO SCH (21:00)
== END 2021-06-20 16:47 | disposition home or self-care (01) | DRG 177 ==
LOC: EC 00:39 → 3SCARD 03:12
PROVIDERS: ADMIT Internal Medicine; ATTEND Internal Medicine
DX: U07.1 COVID-19 (principal); I26.99 Other pulmonary embolism without acute cor pulmonale; J12.82 Pneumonia due to coronavirus disease 2019; J96.01 Acute respiratory failure with hypoxia; J98.11 Atelectasis; R07.89 Other chest pain; K21.9 Gastro-esophageal reflux disease without esophagitis; Z79.01 Long term (current) use of anticoagulants; Z79.899 Other long term (current) drug therapy; Z80.1 Family history of malignant neoplasm of trachea, bronchus and lung; Z86.711 Personal history of pulmonary embolism; Z87.891 Personal history of nicotine dependence; Z88.5 Allergy status to narcotic agent
CPT/HCPCS: 36415; 71045; 71046; 71275; 80053; 83735; 84145; 84484; 85025; 85379; 85610; 85730; 87635; 93005; 93306; 93970; 96374; 99285

== ENCOUNTER 2024-05-28 17:18 | Emergency (ER) | payer MEDICARE, OTHER ==
[2024-05-28 17:39] VITALS: TEMP 99.2
--- NOTE | 2024-05-28 17:54 | ED ---
Nausea/Vomiting/Diarrhea HPI - General Source: patient, RN notes reviewed Mode of arrival: wheelchair Limitations: no limitations <Becca Madrigal - Last Filed: 05/28/24 17:54> - General Source: patient, RN notes reviewed Mode of arrival: wheelchair Limitations: no limitations - History of Present Illness MD complaint: diarrhea, abdominal pain Onset/Timin -: week(s) Description of Diarrhea: water Associated Abdominal Pain: Yes Location: diffuse Radiation: none Quality: cramping Consistency: intermittent Improves with: bowel movement Worsens with: eating Associated Symptoms: loss of appetite <Eric Kerr - Last Filed: 05/28/24 23:15> - General Chief complaint: Nausea/Vomiting/Diarrhea Stated complaint: Diarrhea Time Seen by Provider: 05/28/24 17:53 - History of Present Illness Initial comments: Quick [id number] female presenting for evaluation of diarrhea x 3 weeks. States she is now developing pain near the groin and the upper legs and having difficulty ambulating due to the pain. Also admits bleeding hemorrhoids. States she suffers from claustrophobia and cannot have a CT without being medicated. (Becca Madrigal) This is a 64-year-old female with history of GERD presenting with diarrhea x 6 weeks. Patient states she had gone to her PCP regarding her symptoms, receiving milk of magnesia and Metamucil with minimal improvement in symptoms. Endorses bleeding, painful external hemorrhoids. Also mentions bilateral inguinal pain and difficulty walking due to pain that started this morning. Endorses some bowel incontinence and mid abdominal pain as well. States pain worsens with with eating and improves following bowel movement. Endorses decreased appetite but denies nausea/vomiting. States watery stool was initially black but has since returned to a normal brown color. Endorses increased life stressors including mother passing away last month. Denies fever, chills, chest pain, dyspnea, dizziness, hematochezia. Denies known history of Crohn's, UC, IBS. (Eric Kerr) - Related Data Previous Rx's Medication Instructions Recorded Apixaban [Eliquis Starter Pack 5 - 10 mg PO DIRECTED 30 Days 06/19/21 (for VTE)] #1 each levoFLOXacin [Levaquin] 500 mg PO DAILY 5 Days #5 tab 06/20/21 methylPREDNISolone Dose Pack 4 mg PO DIRECTED #21 tab 06/20/21 [Medrol Dose Pack] Amoxicillin 875 mg PO BID #14 tablet 05/28/24 Loperamide [Imodium] 2 mg PO DIRECTED #16 capsule 05/28/24 Allergies Allergy/AdvReac Type Severity Reaction Status Date / Time codeine AdvReac Nausea & Verified 05/28/24 17:33 Vomiting Review of Systems ROS Other: All systems not noted in ROS Statement are negative. <Becca Madrigal - Last Filed: 05/28/24 17:54> ROS Other: All systems not noted in ROS Statement are negative. <Eric Kerr - Last Filed: 05/28/24 23:15> ROS Statement: Those systems with pertinent positive or pertinent negative responses have been documented in the HPI. Past Medical History Past Medical History: GERD/Reflux Additional Past Medical History / Comment(s): Pt covid + 06/08/21 [facility] History of Any Multi-Drug Resistant Organisms: None Reported Past Surgical History: Tonsillectomy Past Anesthesia/Blood Transfusion Reactions: No Reported Reaction Past Psychological History: No Psychological Hx Reported Smoking Status: Former smoker Past Alcohol Use History: None Reported Past Drug Use History: None Reported - Past Family History Father Family Medical History: Cancer Additional Family Medical History / Comment(s): Father of lung cancer at the age of 67yrs. He was a smoker. Mother Family Medical History: No Reported History Additional Family Medical History / Comment(s): Mother is healthy and is 84 yrs old. <Becca Madrigal - Last Filed: 05/28/24 17:54> General Exam Limitations: no limitations <Becca Madrigal - Last Filed: 05/28/24 17:54> Limitations: no limitations General appearance: alert, in no apparent distress Head exam: Present: atraumatic, normocephalic, normal inspection Eye exam: Present: normal appearance, PERRL, EOMI. Absent: scleral icterus, conjunctival injection, periorbital swelling ENT exam: Present: normal exam, mucous membranes moist Neck exam: Present: normal inspection. Absent: tenderness, meningismus, lymphadenopathy Respiratory exam: Present: normal lung sounds bilaterally. Absent: respiratory distress, wheezes, rales, rhonchi, stridor Cardiovascular Exam: Present: regular rate, normal rhythm, normal heart sounds. Absent: systolic murmur, diastolic murmur, rubs, gallop, clicks GI/Abdominal exam: Present: soft, tenderness (Diffuse tenderness without guarding. Negative tympanic or rebound tenderness), hyperactive bowel sounds. Absent: distended, guarding, rebound, rigid Rectal exam: Present: normal inspection, normal rectal tone, heme (+) stool, hemorrhoids (Flesh-colored external hemorrhoids without bleeding). Absent: fecal impaction Extremities exam: Present: normal inspection, full ROM, normal capillary refill. Absent: tenderness, pedal edema, joint swelling, calf tenderness Back exam: Present: normal inspection Neurological exam: Present: alert, oriented X3, CN II-XII intact Psychiatric exam: Present: normal affect, normal mood Skin exam: Present: warm, dry, intact, normal color. Absent: rash <Eric Kerr - Last Filed: 05/28/24 23:15> - General Exam Comments Initial Comments: Visual Physical Exam Vital signs reviewed General: Well-appearing, nontoxic, no acute distress. Head: Normocephalic, atraumatic Eyes: PERRLA, EOMI ENT: Airway patent Chest: Nonlabored breathing Skin: No visual rash, normal skin tone Neuro: Alert and oriented 3 Musculoskeletal: No gross abnormalities (Becca Madrigla) Course Vital Signs 05/28/24 17:33 Temperature 99.2 F Pulse Rate 98 Respiratory 18 Rate Blood Pressure 140/81 O2 Sat by Pulse 97 Oximetry Medical Decision Making <Becca Madrigal - Last Filed: 05/28/24 17:54> - Lab Data Result diagrams: 05/28/24 19:04 05/28/24 19:04 <Eric Kerr - Last Filed: 05/28/24 23:15> - Medical Decision Making I completed the quick note portion of this chart signed Becca Madrigal PA-C (Becca Madrigal) Was pt. sent in by a medical professional or institution ([facility], CLINICAL SOCIAL WORKER, urgent care, hospital, or long term...) When possible be specific @ -[No] Did you speak to anyone other than the patient for history (EMS, parent, family, police, friend...)? What history was obtained from this source @ -[No] Did you review nursing and triage notes (agree or disagree)? Why? @ -[I reviewed and agree with nursing and triage notes] Were old charts reviewed (outside hosp., previous admission, EMS record, old EKG, old radiological studies, urgent care reports/EKG's, long term records)? Report findings @ -[No old charts were reviewed] Differential Diagnosis (chest pain, altered mental status, abdominal pain women, abdominal pain men, vaginal bleeding, weakness, fever, dyspnea, syncope, headache, dizziness, GI bleed, back pain, seizure, CVA, palpatations, mental health, musculoskeletal)? @ -Differential Abdominal Pain Women: Appendicitis, Cholecystitis, diverticulosis, ischemic bowel, pancreatitis, hepatitis, UTI, gastroenteritis, AAA, incarcerated hernia, bowel obstruction, constipation, inflammatory bowel, hepatitis, peptic ulcer disease, splenic infarction, perforated viscus, vulvitis, ovarian torsion, PID, kidney stone, placenta abruption, this is not meant to be an all-inclusive list EKG interpreted by me (3pts min.). @ -Sinus rhythm without ST changes or T wave inversion. Ventricular rate 93 bpm, SWATI 126 ms, QRS duration 78 ms, QTc 391 ms. X-rays interpreted by me (1pt min.). @ -KUB unremarkable. CT interpreted by me (1pt min.). @ -[None done] U/S interpreted by me (1pt. min.). @ -[None done] What testing was considered but not performed or refused? (CT, X-rays, U/S, lab s)? Why? @ -[None] What meds were considered but not given or refused? Why? @ -[None] Did you discuss the management of the patient with other professionals (professionals i.e. , PA, CLINICAL SOCIAL WORKER, lab, RT, psych nurse, vp digital marketing social media and crm, molder shoulder pad, teacher, radiation safety officer, caseworker protective services)? Give summary @ -[No] Was smoking cessation discussed for >3mins.? @ -[No] Was critical care preformed (if so, how long)? @ -[No] Were there social determinants of health that impacted care today? How? (Homelessness, low income, unemployed, alcoholism, drug addiction, transportation, low edu. Level, literacy, decrease access to med. care, retirement, rehab)? @ -[No] Was there de-escalation of care discussed even if they declined (Discuss DNR or withdrawal of care, Hospice)? DNR status @ -[No] What co-morbidities impacted this encounter? (DM, HTN, Smoking, COPD, CAD, Cancer, CVA, ARF, Chemo, Hep., AIDS, mental health diagnosis, sleep apnea, morbid obesity)? @ -[None] Was patient admitted / discharged? Hospital course, mention meds given and route, prescriptions, significant lab abnormalities, going to OR and other pertinent info. @ -[hospital course] Undiagnosed new problem with uncertain prognosis? @ -[No] Drug Therapy requiring intensive monitoring for toxicity (Heparin, Nitro, Insulin, Cardizem)? @ -[No] Were any procedures done? @ -[No] Diagnosis/symptom? @ -Inflammatory colitis Acute, or Chronic, or Acute on Chronic? @ -Acute Uncomplicated (without systemic symptoms) or Complicated (systemic symptoms)? @ -Complicated Side effects of treatment? @ -[No] Exacerbation, Progression, or Severe Exacerbation? @ -[No] Poses a threat to life or bodily function? How? (Chest pain, [place], [place], pneumonia, PE, COPD, DKA, ARF, appy, cholecystitis, CVA, Diverticulitis, Homicidal, Suicidal, threat to staff... and all critical care pts) @ -[No] (Eric Kerr) - Lab Data Lab Results 05/28/24 05/28/24 05/28/24 Range/Units 19:04 19:04 19:04 WBC 10.1 (3.8-10.6) k/uL RBC 4.81 (3.80-5.40) m/uL Hgb 13.6 (11.4-16.0) gm/dL Hct 42.2 (34.0-46.0) % MCV 87.8 (80.0-100.0) fL MCH 28.4 (25.0-35.0) pg MCHC 32.3 (31.0-37.0) g/dL RDW 12.3 (11.5-15.5) % Plt Count 386 (150-450) k/uL MPV 7.2 Neutrophils % 73 % Lymphocytes % 14 % Monocytes % 8 % Eosinophils % 2 % Basophils % 1 % Neutrophils # 7.4 (1.3-7.7) k/uL Lymphocytes # 1.4 (1.0-4.8) k/uL Monocytes # 0.8 (0-1.0) k/uL Eosinophils # 0.2 (0-0.7) k/uL Basophils # 0.1 (0-0.2) k/uL Sodium 138 (137-145) mmol/L Potassium 4.8 (3.5-5.1) mmol/L Chloride 100 (98-107) mmol/L Carbon Dioxide 27 (22-30) mmol/L Anion Gap 11 mmol/L BUN 14 (7-17) mg/dL Creatinine 0.84 (0.52-1.04) mg/dL Est GFR (CKD-EPI)AfAm 84 (>60 ml/min/1.73 sqM) Est GFR (CKD-EPI)NonAf 73 (>60 ml/min/1.73 sqM) Glucose 110 H (74-99) mg/dL Plasma Lactic Acid Boogie 1.0 (0.7-2.0) mmol/L Calcium 9.2 (8.4-10.2) mg/dL Magnesium 2.3 (1.6-2.3) mg/dL Total Bilirubin 0.3 (0.2-1.3) mg/dL AST 16 (14-36) U/L ALT 12 (4-34) U/L Alkaline Phosphatase 92 (38-126) U/L C-Reactive Protein (<1.0) mg/dL Total Protein 7.7 (6.3-8.2) g/dL Albumin 4.0 (3.5-5.0) g/dL Lipase 988 H (23-300) U/L Urine Color Urine Appearance (Clear) Urine pH (5.0-8.0) Ur Specific [place] (1.001-1.035) Urine Protein (Negative) Urine Glucose (UA) (Negative) Urine Ketones (Negative) Urine Blood (Negative) Urine Nitrite (Negative) Urine Bilirubin (Negative) Urine Urobilinogen (<2.0) mg/dL Ur Leukocyte Esterase (Negative) Urine RBC (0-5) /hpf Urine WBC (0-5) /hpf Ur Squamous Epith Cells (0-4) /hpf Urine Bacteria (None) /hpf Urine Mucus (None) /hpf Stool Occult Blood (Negative) 05/28/24 05/28/24 05/28/24 Range/Units 19:54 19:54 20:22 WBC (3.8-10.6) k/uL RBC (3.80-5.40) m/uL Hgb (11.4-16.0) gm/dL Hct (34.0-46.0) % MCV (80.0-100.0) fL MCH (25.0-35.0) pg MCHC (31.0-37.0) g/dL RDW (11.5-15.5) % Plt Count (150-450) k/uL MPV Neutrophils % % Lymphocytes % % Monocytes % % Eosinophils % % Basophils % % Neutrophils # (1.3-7.7) k/uL Lymphocytes # (1.0-4.8) k/uL Monocytes # (0-1.0) k/uL Eosinophils # (0-0.7) k/uL Basophils # (0-0.2) k/uL Sodium (137-145) mmol/L Potassium (3.5-5.1) mmol/L Chloride (98-107) mmol/L Carbon Dioxide (22-30) mmol/L Anion Gap mmol/L BUN (7-17) mg/dL Creatinine (0.52-1.04) mg/dL Est GFR (CKD-EPI)AfAm (>60 ml/min/1.73 sqM) Est GFR (CKD-EPI)NonAf (>60 ml/min/1.73 sqM) Glucose (74-99) mg/dL Plasma Lactic Acid Boogie (0.7-2.0) mmol/L Calcium (8.4-10.2) mg/dL Magnesium (1.6-2.3) mg/dL Total Bilirubin (0.2-1.3) mg/dL AST (14-36) U/L ALT (4-34) U/L Alkaline Phosphatase (38-126) U/L C-Reactive Protein 1.8 H (<1.0) mg/dL Total Protein (6.3-8.2) g/dL Albumin (3.5-5.0) g/dL Lipase (23-300) U/L Urine Color Yellow Urine Appearance Clear (Clear) Urine pH 5.0 (5.0-8.0) Ur Specific [place] 1.022 (1.001-1.035) Urine Protein Trace H (Negative) Urine Glucose (UA) Negative (Negative) Urine Ketones Negative (Negative) Urine Blood Small H (Negative) Urine Nitrite Negative (Negative) Urine Bilirubin Negative (Negative) Urine Urobilinogen <2.0 (<2.0) mg/dL Ur Leukocyte Esterase Negative (Negative) Urine RBC 2 (0-5) /hpf Urine WBC 1 (0-5) /hpf Ur Squamous Epith Cells 1 (0-4) /hpf Urine Bacteria Rare H (None) /hpf Urine Mucus Moderate H (None) /hpf Stool Occult Blood Positive H (Negative) Disposition <Becca Madrigal - Last Filed: 05/28/24 17:54> Is patient prescribed a controlled substance at d/c from ED?: No Time of Disposition: 23:15 <Eric Kerr - Last Filed: 05/28/24 23:15> Clinical Impression: Strain of hip flexor, Colitis Disposition: HOME SELF-CARE Condition: Good Instructions (If sedation given, give patient instructions): Colitis (ED), Tendinitis (ED) Prescriptions: Amoxicillin 875 mg PO BID #14 tablet Loperamide [Imodium] 2 mg PO DIRECTED #16 capsule Referrals: Rahul Narayanan MD [Primary Care Provider] - 1-2 days
--- NOTE | 2024-05-28 19:24 | XR ---
EXAMINATION TYPE: XR KUB DATE OF EXAM: 05/28/2024 6:49 PM COMPARISON: None. CLINICAL INDICATION: Female, 64 years old with history of pain, TECHNIQUE: XR KUB view(s) obtained. FINDINGS: There is a normal bowel gas pattern. No free air is evident. No differential air-fluid levels are lynn dent. No mass effect. Psoas margins are normal. No organomegaly is present. IMPRESSION: 1. Unremarkable Abdomen [facility], , 05/28/2024 7:21 PM
[2024-05-28 19:30] LABS: Basophils # (A) 0.1 k/uL (0-0.2); Basophils % (A) 1 %; Eosinophils # (A) 0.2 k/uL (0-0.7); Eosinophils % (A) 2 %; HCT 42.2 % (34.0-46.0); HGB 13.6 gm/dL (11.4-16.0); Lymphocytes # (A) 1.4 k/uL (1.0-4.8); Lymphocytes % (A) 14 %; MCH 28.4 pg (25.0-35.0); MCHC 32.3 g/dL (31.0-37.0); MCV 87.8 fL (80.0-100.0); Mean Platelet Volume 7.2; Monocytes # (A) 0.8 k/uL (0-1.0); Monocytes % (A) 8 %; Neutrophils # (A) 7.4 k/uL (1.3-7.7); Neutrophils % (A) 73 %; Platelet Count 386 k/uL (150-450); RBC 4.81 m/uL (3.80-5.40); RDW 12.3 % (11.5-15.5); WBC 10.1 k/uL (3.8-10.6)
[2024-05-28 19:52] LABS: ALT 12 U/L (4-34); AST 16 U/L (14-36); African American GFR (CKD) 84 (>60 ml/min/1.73 sqM); Alkaline Phosphatase 92 U/L (38-126); Anion Gap 11 mmol/L; Blood Urea Nitrogen 14 mg/dL (7-17); Calcium 9.2 mg/dL (8.4-10.2); Carbon Dioxide 27 mmol/L (22-30); Chloride 100 mmol/L (98-107); Glucose 110 mg/dL (74-99); Lipase 988 U/L (23-300); Magnesium 2.3 mg/dL (1.6-2.3); Non-African American GFR(CKD) 73 (>60 ml/min/1.73 sqM); Potassium 4.8 mmol/L (3.5-5.1); Sodium 138 mmol/L (137-145); Total Bilirubin 0.3 mg/dL (0.2-1.3); Total Protein 7.7 g/dL (6.3-8.2)
[2024-05-28] MEDS: DICYCLOMINE 20 MG TAB PO STA (20:29)
[2024-05-28] MEDS: LORazepam 2 MG/ML INJ IV STA (20:29)
[2024-05-28] MEDS: SODIUM CHLORIDE 0.9% 1,000 ML IV STA ×2 (20:30→23:00)
[2024-05-28 20:40] LABS: Appearance,Urine Clear (Clear); Bacteria,Urine Rare /hpf; Bilirubin,Urine Negative (Negative); Blood,Urine Small (Negative); Color,Urine Yellow; Glucose,Urine (UA) Negative (Negative); Ketones,Urine Negative (Negative); Leukocyte Esterase,Urine Negative (Negative); Mucus,Urine Moderate /hpf; Nitrite,Urine Negative (Negative); Protein,Urine Trace (Negative); RBC,Urine 2 /hpf (0-5); Specific Gravity,Urine 1.022 (1.001-1.035); Squamous Epithelial Cell,Urine 1 /hpf (0-4); Urobilinogen,Urine <2.0 mg/dL (<2.0); WBC,Urine 1 /hpf (0-5)
--- NOTE | 2024-05-28 21:10 | CT ---
EXAMINATION TYPE: CT abdomen pelvis w con DATE OF EXAM: 05/28/2024 8:58 PM COMPARISON: 06/08/2021 CLINICAL INDICATION: Female, 64 years old with history of Diarrhea, groin/pelvic pain, nausea, pelvic pain, diarrhea TECHNIQUE: Axial images were obtained from above the diaphragm to the pubic rami in the axial plane a t 5 mm thick sections. Reconstructed images are reviewed on the computer in the coronal plane. CONTRAST: 100 mL of Isovue 300. Study performed without Oral Contrast DLP: 609.8 mGycm, Automated exposure control for dose reduction was used. FINDINGS: Limited CT sections are obtained the lung bases. The lung bases are clear. CT ABDOMEN: Liver: Normal Spleen: Multiple calcified granuloma within the spleen Pancreas: Normal Adrenal glands: The adrenal glands are normal. Gallbladder: Normal Kidneys: No masses are evident. No hydronephrosis is present. No cysts are present. Delayed images were obtained through the kidneys, which remain unremarkable. Aorta: Vascular calcification is within the aorta. Inferior vena cava: Normal. CT PELVIS: There is some mild wall thickening within the rectosigmoid region. Correlate for colitis. The proxima l and mid sigmoid colon appear normal. No dilated loops of bowel are evident. Fecal debris is within the remaining colon. Appendix: Normal as visualized. Urinary bladder: Normal. Genitourinary structures: Uterus and ovaries appear normal Osseous structures: No suspicious lytic or sclerotic lesions. There is narrowing of the posterior L5- S1 disc height. Some narrowing of the L1-2 disc height is present. Vertebral body heights are preserv ed. IMPRESSION: 1. Thickening of the rectosigmoid junction. Correlate for colitis. [facility], , 05/28/2024 9:07 PM
[2024-05-28] MEDS: LOPERAMIDE 2 MG CAP PO STA (23:01)
[2024-05-28] MEDS: AMOXIC-POT CLAV 875-125MG 1 EACH TAB PO STA (23:01)
[2024-05-28] MEDS: KETOROLAC 15 MG/ML 1 ML VIAL IVP STA (23:01)
[2024-05-28] MEDS: ORPHENADRINE 30 MG/ML 2 ML VIAL IM STA (23:02)
[2024-05-28] MEDS: IBUPROFEN 600 MG STARTER PACK 4 TAB BTL PO STA (23:33)
[2024-05-28] MEDS: CYCLOBENZAPRINE 10MG STARTER 3 TAB BTL PO STA (23:33)
[2024-05-29 00:09] VITALS: BP 132/86; PULSE 86; RESP 16
== END 2024-05-29 00:11 | disposition home or self-care (01) ==
LOC: EC 17:18
DX: S39.012A Strain of muscle, fascia and tendon of lower back, initial encounter (principal); K52.9 Noninfective gastroenteritis and colitis, unspecified; Z87.891 Personal history of nicotine dependence; Z88.5 Allergy status to narcotic agent; X58.XXXA Exposure to other specified factors, initial encounter
CPT/HCPCS: 36415; 93005; 80053; 83605; 83690; 83735; 85025; 86140; 82272; 81001; 87324; 87045; 87046; 74018; 74177; 99285; 96374; 96375; 96372; 96361 ×2; J2060; J2360; J1885; Q9967